=== PATIENT | female | born 1935 | race Hispanic/Latino ===

== ENCOUNTER 2017-03-29 04:56 | Inpatient (IN) | payer MEDICARE ==
[2017-03-29] MEDS ORDERED: Morphine 2 mg/ml ISec SC ONE (06:00)
--- NOTE | 2017-03-29 06:30 | ED PDOC ---
Arrival/HPI - General Time Seen by Provider: 03/29/17 06:24 - History of Present Illness Narrative History of Present Illness (Text): 03/29/17 06:27 81 F with PMHx of Breast CA biba with 2 weeks hx of progressive non-productive cough and sob. Patient's son states that she has never had an episode like this in the past. Patient presented on CPAP. She denies any history of COPD, Asthma, CHF, or moking. Denies f/ch, URI symptoms besides cough. Pt denies calf tenderness. No further complaints. (Kieran Du) Past Medical History - Provider Review Nursing Documentation Reviewed: Yes Family/Social History - Physician Review Nursing Documentation Reviewed: Yes Family/Social History: No Known Family HX Allergies/Home Meds Allergies/Adverse Reactions: Allergies pcn Allergy (Uncoded 03/29/17 06:26) RASH Home Medications: Home Meds Medication Instructions Recorded Confirmed Glyburide [Micronase] 10 mg PO DAILY 03/29/17 03/29/17 Lisinopril [Zestril] 10 mg PO DAILY 03/29/17 03/29/17 MetFORMIN [glucOPHAGE] 1,000 mg PO BID 03/29/17 03/29/17 Simvastatin [Zocor] 20 mg PO HS 03/29/17 03/29/17 Review of Systems - Physician Review All systems were reviewed & negative as marked: Yes - Review of Systems Constitutional: Normal. absent: Fatigue, Weight Change, Fevers Eyes: Normal. absent: Vision Changes, Photophobia, Eye Pain ENT: Normal. absent: Hearing Changes, Tinnitus, TMJ Pain Respiratory: SOB, Cough. absent: Sputum Cardiovascular: Normal. absent: Chest Pain, Palpitations, Edema, Calf Pain, ROCHA Gastrointestinal: Normal. absent: Abdominal Pain, Stool Changes, Constipation, Diarrhea, Nausea, Vomiting Genitourinary Female: Normal. absent: Dysuria, Frequency, Hematuria Musculoskeletal: Normal. absent: Arthralgias, Back Pain, Neck Pain Skin: Normal. absent: Rash, Pruritis, Skin Lesions Neurological: Normal. absent: Headache, Dizziness, Focal Weakness Endocrine: Normal. absent: Diaphoresis, Polyuria, Polydipsia Hemo/Lymphatic: Normal. absent: Adenopathy, Easy Bleeding, Easy Bruising Psychiatric: Normal. absent: Anxiety, Depression, Suicidal Ideation Physical Exam Vital Signs Reviewed: Yes Temperature: Afebrile Blood Pressure: Hypertensive Pulse: Tachycardic Respiratory Rate: Tachypneic Appearance: Positive for: Well-Appearing, Non-Toxic, Comfortable Pain Distress: None Mental Status: Positive for: Alert and Oriented X 3 - Systems Exam Head: Present: Atraumatic, Normocephalic. No: Tenderness, Contusion Pupils: Present: PERRL. No: Sluggish, Non-Reactive, Pinpoint Extroacular Muscles: Present: EOMI. No: Gaze Palsy, Entrapment Conjunctiva: Present: Normal. No: Injected, Icteric Ears: Present: Normal, NORMAL TM, Normal Canal. No: Erythema, TM Bulging Mouth: Present: Moist Mucous Membranes, Normal Lips. No: Dry, Drooling, Trismus Pharnyx: Present: Normal. No: ERYTHEMA, EXUDATE, TONSILS ENLARGED Nose (External): Present: Atraumatic. No: Abrasion, Contusion, Laceration Nose (Internal): Present: Normal Inspection, No Active Bleeding. No: Moist, Engorged, Edematous, Boggy Neck: Present: Normal Range of Motion. No: Meningeal Signs, MIDLINE TENDERNESS , Paraspinal Tenderness, JVD Respiratory/Chest: Present: Respiratory Distress, Accessory Muscle Use, Rales ( bibasilar rales, more pronounced on the right) Cardiovascular: Present: Normal S1, S2, Tachycardic. No: Regular Rate and Rhythm (regular rhythm, tachycardic), Murmurs Abdomen: Present: Normal Bowel Sounds. No: Tenderness, Distention, Peritoneal Signs Back: Present: Normal Inspection. No: CVA Tenderness, Midline Tenderness, Paraspinal Tenderness Upper Extremity: Present: Normal Inspection, Normal ROM, NORMAL PULSES. No: Cyanosis, Edema, Tenderness Lower Extremity: Present: Normal Inspection, CALF TENDERNESS, NORMAL PULSES, Normal ROM. No: Edema, Cyanosis Neurological: Present: GCS=15, CN II-XII Intact, Speech Normal, Motor Func Grossly Intact, Normal Sensory Function, Normal Cerebellar Funct Skin: Present: Warm, Dry, Normal Color. No: Rashes, Diaphoretic, Erythematous, Induration, Hot, Cold Psychiatric: Present: Alert, Oriented x 3, Normal Insight, Normal Concentration , Normal Affect, Normal Mood. No: Anxious, Agitated, Depressed Mood, Suicidal Ideation, Homicidal Ideation Vital Signs Temp Pulse Resp BP Pulse Ox 03/29/17 09:19 82 18 137/68 98 03/29/17 08:08 98.2 F 88 20 129/73 98 03/29/17 07:30 78 20 131/77 97 03/29/17 06:28 95 H 24 133/69 97 Medical Decision Making ED Course and Treatment: Assessed 03/29/17 05:50 Impression: 81 F with SOB and non-productive cough Plan: - Duonebs - CXR, Tropes, EKG - CMP, CBC, BNP, Blood Cx - UA, U Cx - Reassess Reassessed 03/29/17 06:10 - Pt feels much better after duonebs - CXR shows pulmonary venous congestion, cardiomegaly - EKG shows sinus tachycardia with occasional PVC's Reassessed 03/29/17 06:25 - WBC elevated, BNP elevated - 1 dose of Zosyn - Spoke to Dr. Christian, who admits her to his service - Per Dr. Christian, ordered CTA (Kieran Du) Patient Seen With Resident: In agreement with resident note which contains more details about the patient. Patient was seen and evaluated with resident. Came up with plan and treatment together. (Kana Curry) - Lab Interpretations Lab Results: 03/29/17 05:50 03/29/17 05:15 Lab Results 03/29/17 05:50: pO2 62 H, VBG pH 7.21 L, VBG pCO2 48.0, VBG HCO3 19.2 L, VBG Total CO2 20.7 L, VBG O2 Sat (Calc) 91.2 H, VBG Base Excess -8.8 L, VBG Potassium 3.9, Glucose 268 H, Lactate 2.9 H, FiO2 21.0, Sodium 140.0, Chloride 109.0 H, Venous Blood Potassium 3.9 03/29/17 05:50: WBC 15.5 H, RBC 4.86, Hgb 14.5, Hct 43.6, MCV 89.7, MCH 29.8, MCHC 33.3, RDW 13.9, Plt Count 263, MPV 10.9, Gran % 53.2, Lymph % (Auto) 38.2 H , [place] % (Auto) 5.4, Eos % (Auto) 2.9, Baso % (Auto) 0.3, Gran # 8.28 H, Lymph # 5.9 H, [place] # 0.8 H, Eos # 0.5, Baso # 0.04 03/29/17 05:50: PT 11.0, INR 1.02, APTT 26.8 03/29/17 05:15: Free T4 0.91, Thyroxine (T4) 7.2, TSH 3rd Generation 4.16 03/29/17 05:15: Sodium 143, Potassium 3.8, Chloride 108 H, Carbon Dioxide 19 L, Anion Gap 20, BUN 22 H, Creatinine 1.0, Est GFR ( Amer) > 60, Est GFR ( Non-Af Amer) 53, Random Glucose 237 H, Calcium 9.2, Total Bilirubin 1.0, AST 76 H, ALT 45, Alkaline Phosphatase 70, Total Creatine Kinase 158, Troponin I 0.03, Total Protein 7.7, Albumin 4.6, Globulin 3.1, Albumin/Globulin Ratio 1.5, Triglycerides 190 H, Cholesterol 168, LDL Cholesterol Direct 117, HDL Cholesterol 32 - Medication Orders Current Medication Orders: Aspirin (Ecotrin) 81 mg PO DAILY [facility] Last Admin: 03/29/17 13:55 Dose: 81 mg Atorvastatin Calcium (Lipitor) 40 mg PO DAILY [facility] Last Admin: 03/29/17 10:06 Dose: 40 mg Benzonatate (Tessalon Perles) 200 mg PO TID [facility] Last Admin: 03/29/17 15:16 Dose: 200 mg Clopidogrel Bisulfate (Plavix) 75 mg PO DAILY [facility] Enoxaparin Sodium (Lovenox) 60 mg SC BID [facility] PRN Reason: Protocol Furosemide (Lasix) 40 mg IVP Q12H [facility] Last Admin: 03/29/17 07:00 Dose: Doxycycline Hyclate 100 mg/ (Sodium Chloride) 100 mls @ 100 mls/hr IVPB Q12 [facility] PRN Reason: Protocol Last Admin: 03/29/17 10:08 Dose: 100 mls/hr Aztreonam (Azactam 2 Gm) 100 mls @ 100 mls/hr IVPB Q8 [facility] PRN Reason: Protocol Stop: 04/02/17 22:59 Last Admin: 03/29/17 15:44 Dose: 100 mls/hr eMAR Start Stop Document 03/29/17 15:44 KMS (Rec: 03/29/17 15:44 KMS [id number]) Intravenous Solution Start Date 03/29/17 Start Time 15:45 End Date 03/29/17 End time 16:45 Total Infusion Time 60 Insulin Human Regular (Humulin R Low) 0 units SC ACHS [facility] PRN Reason: Protocol Last Admin: 03/29/17 13:55 Dose: 2 units MAR Blood Glucose Document 03/29/17 13:55 KMS (Rec: 03/29/17 13:56 [place] [id number]) Blood Glucose Finger Stick Blood Glucose (70-120) 221 Subcutaneous Administrations Document 03/29/17 13:55 KMS (Rec: 03/29/17 13:56 [place] [id number]) Injection Site MAR Injection Site Left Arm Charges for Administration # of Subcutaneous Administrations 1 Levalbuterol HCl (Xopenex) 0.63 mg IH [id number] [facility] Last Admin: 03/29/17 15:14 Dose: 0.63 mg Pantoprazole Sodium (Protonix Ec Tab) 20 mg PO 0600,1600 [facility] Last Admin: 03/29/17 09:02 Dose: 20 mg Discontinued Medications Albuterol/Ipratropium (Duoneb 3 Mg/0.5 Mg (3 Ml) Ud) 3 ml IH ONCE ONE Stop: 03/29/17 08:31 Last Admin: 03/29/17 08:55 Dose: 3 ml Atorvastatin Calcium (Lipitor) 40 mg PO STAT STA Stop: 03/29/17 07:59 Clopidogrel Bisulfate (Plavix) 300 mg PO STAT STA Stop: 03/29/17 13:31 Last Admin: 03/29/17 13:43 Dose: 300 mg Enoxaparin Sodium (Lovenox) 40 mg SC DAILY [facility] PRN Reason: Protocol Last Admin: 03/29/17 10:05 Dose: 40 mg Subcutaneous Administrations Document 03/29/17 10:05 KMS (Rec: 03/29/17 10:05 [id number]) Injection Site MAR Injection Site Right Abdomen Charges for Administration # of Subcutaneous Administrations 1 Furosemide (Lasix) 40 mg IVP ONCE ONE Stop: 03/29/17 08:31 Last Admin: 03/29/17 09:00 Dose: Iodixanol (Visipaque 320 Mg/Ml 100 Ml) Confirm Administered Dose 100 ml IV .STK- MED ONE Stop: 03/29/17 06:32 Morphine Sulfate (Morphine) 2 mg SC ONCE ONE Stop: 03/29/17 06:01 Last Admin: 03/29/17 08:48 Dose: Potassium Chloride (Potassium Chloride Oral Soln) 20 meq PO STAT STA Stop: 03/29/17 13:25 Last Admin: 03/29/17 13:43 Dose: 20 meq Disposition/Present on Arrival - Present on Arrival Any Indicators Present on Arrival: No History of DVT/PE: No History of Uncontrolled Diabetes: No Urinary Catheter: No History of Decub. Ulcer: No - Disposition Have Diagnosis and Disposition been Completed?: Yes Disposition Time: 06:25 Patient Plan: Admission - Disposition Diagnosis: Shortness of breath Disposition: HOSPITALIZED Patient Problems: Current Active Problems Problem Status Onset Shortness of breath Acute Condition: IMPROVED
[2017-03-29] MEDS ORDERED: Iodixanol 320 MG/ML 100 ML BOTTLE IV ONE (06:31)
[2017-03-29 07:14] LABS: TROPONIN I 0.03 ng/mL
[2017-03-29 07:17] LABS: ALB/GLOB RATIO 1.5 (1.1-1.8); ALKALINE PHOSPHATASE 70 U/L (38-126); ALT/SGPT 45 U/L (7-56); AST/SGOT 76 U/L (14-36); BLOOD UREA NITROGEN 22 mg/dL (7-21); CALCIUM 9.2 mg/dL (8.4-10.5); CARBON DIOXIDE 19 mmol/L (21-33); CHLORIDE 108 mmol/L (98-107); GFR AFRICAN-AMERICAN > 60; GLUCOSE,RANDOM 237 mg/dL (70-110); POTASSIUM 3.8 mmol/L (3.6-5.0); SODIUM 143 mmol/L (132-148); TOTAL PROTEIN 7.7 g/dL (5.8-8.3)
[2017-03-29 07:22] LABS: VENOUS BLOOD GAS BASE EXCESS -8.8 mmol/L (0.0-2.0); VENOUS BLOOD PH 7.21 (7.32-7.43)
[2017-03-29 07:42] LABS: CHOLESTEROL 168 mg/dL (130-200)
[2017-03-29 07:43] LABS: HEMATOCRIT 43.6 % (36.0-48.0); MEAN CELL VOLUME 89.7 fl (80.0-105.0); WHITE BLOOD COUNT 15.5 10^3/ul (4.5-11.0)
[2017-03-29 07:44] LABS: BASO # 0.04 K/mm3 (0.0-2.0); BASO % 0.3 % (0.0-3.0); EOS # 0.5 (0.0-0.7); EOS % 2.9 % (1.5-5.0); GRAN # 8.28 (1.4-6.5); GRAN % 53.2 % (50.0-68.0); LYMPH # 5.9 (1.2-3.4); LYMPH % 38.2 % (22.0-35.0); MEAN CORPUSCULAR HEMOGLOBIN 29.8 pg (25.0-35.0); MEAN CORPUSCULAR HGB CONC 33.3 g/dl (31.0-37.0); MEAN PLATELET VOLUME 10.9 fl (7.0-11.0); MONO # 0.8 (0.1-0.6); MONO % 5.4 % (1.0-6.0); RED CELL DISTRIBUTION WIDTH 13.9 % (11.5-14.5)
[2017-03-29 07:56] LABS: INR 1.02 (0.93-1.08); PARTIAL THROMBOPLASTIN TIME 26.8 Seconds (23.7-30.8)
[2017-03-29 08:02] LABS: FREE T4 0.91 ng/dL (0.78-2.19); T4 7.2 ug/dL (5.5-11.0)
[2017-03-29] MEDS: Levalbuterol 0.63 MG/3 ML Inhal Soln UD IH SCH ×3 (08:10→19:22)
[2017-03-29 08:15] LABS: THYROID STIMULATING HORMONE 4.16 mIU/mL (0.46-4.68)
[2017-03-29] MEDS ORDERED: Albuterol-Ipratrop 3 mg / 0.5 (3 ml) UD IH ONE (08:30)
[2017-03-29] MEDS: Pantoprazole 20 mg EC Tab PO SCH ×2 (09:02→17:09)
[2017-03-29] MEDS: Aztreonam 2 Gm in NS 100mL 100 ML IVPB SCH ×3 (09:11→22:59)
[2017-03-29] MEDS ORDERED: Enoxaparin 40 mg Syringe SC SCH (10:00)
--- NOTE | 2017-03-29 10:07 | CT ---
PROCEDURE: CTA chest dated 02/26/2017. HISTORY: Rule out PE COMPARISON: None available. TECHNIQUE: Axial computed tomography images were obtained of the chest in the pulmonary arterial phase of enhancement. Coronal and sagittal reformatted images were created and reviewed. Intravenous contrast dose: 100 cc Visipaque contrast material Radiation dose: Total exam DLP = 353. 98 mGy-cm. This CT exam was performed using one or more of the following dose reduction techniques: Automated exposure control, adjustment of the mA and/or kV according to patient size, and/or use of iterative reconstruction technique. FINDINGS: PULMONARY ARTERIES: Visualized pulmonary trunk, right and left main, lobar, segmental and proximal subsegmental branches of the pulmonary arteries are well opacified with no definitive filling defects seen suggest acute pulmonary embolus. The pulmonary trunk measures approximately 3.6 cm in greatest dimension; rule out underlying pulmonary arterial hypertension. AORTA: Ascending thoracic aorta measures approximately 2.8 cm and descending thoracic aorta measures approximately 2.15 cm. LUNGS: Moderate-sized bilateral effusions right larger than left. There is also mild bibasilar atelectasis. Findings consistent with mild pulmonary edema/CHF. In addition, there appears to be at areas of chronic atelectasis and or scarring changes in both lower lung summers including the middle lobe and lingular regions. PLEURAL SPACES: As above. No apparent pneumothorax HEART: Heart is enlarged. There is left ventricular hypertrophy. No significant pericardial effusion. LYMPH NODES: Few small nonspecific mediastinal lymph nodes. No significant hilar adenopathy. BONES, CHEST WALL: Mild multilevel degenerative spondylosis of the thoracic spine. No acute compression fractures. Probable hemangiomas within T7 and T12 segments. OTHER FINDINGS: Unremarkable. IMPRESSION: No evidence of acute central pulmonary embolus. Mildly dilated pulmonary trunk. Rule out underlying pulmonary arterial hypertension. Above bilateral effusions right larger than left. Bibasilar atelectasis with chronic scarring changes. Findings consistent with mild pulmonary edema/CHF
[2017-03-29 11:05] LABS: VENOUS BLOOD PH 7.28 (7.32-7.43)
[2017-03-29 11:23] LABS: TROPONIN I 0.09 ng/mL
--- NOTE | 2017-03-29 11:52 | HP ---
HISTORY OF PRESENT ILLNESS: The patient is an 81-year-old female who has been visiting from [place]. The patient was brought to the [facility] Emergency Room in the police liaison hours of 03/29/2017. The patient presented to the emergency room, according to the ER physician evaluation, the patient was brought in by the ambulance, complains of 2-week history of increasing shortness of breath and cough. According to the patient's son, the patient has history of pneumonia. The patient has been having worsening symptoms for the last week or 2. REVIEW OF SYSTEMS: The patient's 13 system review was positive for cough and increasing shortness of breath. CODE STATUS: Full code. LIVING WILL ADVANCE DIRECTIVE: None. ALLERGIES: PENICILLIN. HEIGHT: 5 feet 1 inch. WEIGHT: 140 pounds. BMI: 26. PAST MEDICAL HISTORY: Significant for breast carcinoma, history of questionable pneumonia, history of PENICILLIN ALLERGIES. MEDICATIONS: The patient's medications are none known at this time. At present, [employer] system is not fully up, so limited information is available. The patient's family is unable to provide any medications. The patient was seen in stretcher #8 in the emergency room. PHYSICAL EXAMINATION: VITAL SIGNS: T-max afebrile, heart rate 95, blood pressure 133/90, respiration 24, O2 sat 97% on 2 L oxygen. GENERAL: The patient was seen by the ER physician and the medical technologist blood bank in the ER. The patient's 13 system review was positive for shortness of breath and cough. The patient is a short-statured lady. HEENT: The patient's head examination normocephalic, atraumatic. HEENT examination shows pinkish pale conjunctivae. Anicteric sclerae. No oropharyngeal lesions noted. NECK: Short and supple. CHEST: Kyphosis. LUNGS: Examination shows bilateral bibasilar rales and rhonchi bilaterally. CARDIOVASCULAR: Shows S1, S2, tachycardic rhythm. ABDOMEN: Soft. Positive bowel sounds. No guarding. No rigidity. No rebound tenderness noted. GENITALIA: Female. EXTREMITIES: Positive swelling of the lower extremity. NEUROLOGIC: The patient is alert, awake, responsive. Cranial nerves II through XII grossly intact. Gait examination could not be tested. The patient is alert, awake, oriented x3. PSYCH: No auditory or visual hallucination noted. No anxiety or suicidal ideation noted. SKIN: Warm and dry. The patient was seen and evaluated in the ER by the ER physician and the resident. The patient was given an epidural bronchodilators. Chest x-ray, cardiac enzymes, EKG, BNP were done. Chest x-ray preliminary report, increased vascular marking and pulmonary vascular congestion, cardiomegaly noted. EKG shows sinus tachycardia with PACs, PVCs. The patient was treated with a dose of Zosyn. The patient was given Lasix 40 and DuoNeb nebulizer.. The patient's diagnostic data is still pending. Labs are still pending. We are unable to access this secondary to [employer] issues. IMPRESSION AND PLAN: 1. Shortness of breath, etiology undetermined. 2. Possible congestive heart failure, either systolic versus diastolic, unclear at this time. 3. Leukocytosis, etiology undetermined. 4. Cardiomegaly. 5. Sinus tachycardia. 6. Questionable systemic inflammatory response syndrome. 7. Questionable community-acquired pneumonia. 8. Congestive heart failure. 9. History of breast carcinoma. PLAN: At this time, we are awaiting official lab results, which will be reviewed. The patient has been admitted to telemetry by the ER attending. The patient has been ordered serial BNP, serial labs, serial troponins, serial CPKs, thyroid panel, lipid panel have been ordered. The patient is started on Lasix 40 IV q.12, Lovenox 40 subcu daily, Protonix 40 mg daily, Xopenex nebulizer 0.63 mg every 6 hours. The patient has also been on put on oxygen 2 L continuous. Repeat EKG ordered. Echo with Doppler ordered. Cardiology consultation and Infectious Disease consultation have been ordered. The patient has already been given a dose of antibiotics. Blood cultures will be ordered. Sputum cultures will be ordered. The patient will be started on broad-spectrum antibiotics with bronchodilators, an expectorant. The patient at present is in the emergency room. The patient's further management will be dependent upon the patient's clinical condition, hemodynamic status, and as per the patient response to therapeutic intervention as per the patient's diagnostic test results, and as per recommendation by Cardiology and Infectious Disease. The patient's diagnostic data has been ordered. Steven Christian MD
[2017-03-29 12:00] VITALS: BMI 26.4
--- NOTE | 2017-03-29 12:26 | RAD ---
HISTORY: CHEST PORTABLE COMPARISON: The study was read in conjunction with subsequent CTA chest 03/29/2017 at 8:16 a.m. FINDINGS: LUNGS: Mild pulmonary vascular congestive changes with bilateral lower lobe alveolar-type infiltrates. Bilateral effusions right greater than left with bibasilar atelectasis. PLEURA: No significant pleural effusion identified, no pneumothorax apparent. CARDIOVASCULAR: Cardiomegaly. OSSEOUS STRUCTURES: No significant abnormalities. VISUALIZED UPPER ABDOMEN: Normal. OTHER FINDINGS: Re- demonstrated are metallic clips right axillary soft tissues and posterior right breast. . Clinic correlation with surgical history recommended. IMPRESSION: Pulmonary vascular congestion with bilateral effusions and bibasilar atelectasis
[2017-03-29] MEDS ORDERED: Potassium Chloride 20 mEq/15 ml LIQ UD PO STA (13:24)
[2017-03-29] MEDS: Insulin Reg-LOW-Coverage SC SCH ×3 (13:55→23:03)
--- NOTE | 2017-03-29 14:27 | CP.PCM.CON ---
History of Present Illness - History of Present Illness History of Present Illness: 81 year old female with PMH of breast cancer came in to [facility] because of sudden onset respiratory distress last night with some chest tightness. The patient denies fever or chills, no nausea or vomiting, no abdominal pain, no cough or sputum production, no headache or dizziness, no diarrhea, no dysuria. She denies specific sick contacts, no animal contacts. She is visiting her son here in [place] and lives in [place]. Infectious Diseases consult is requested to further evaluate and manage. Review of Systems - Review of Systems All systems: reviewed and no additional remarkable complaints except (as per HPI ) Meds Allergies/Adverse Reactions: Allergies Allergy/AdvReac Type Severity Reaction Status Date / Time pcn Allergy RASH Uncoded 03/29/17 06:26 - Medications Medications: Current Medications Atorvastatin Calcium (Lipitor) 40 mg PO DAILY [facility] Benzonatate (Tessalon Perles) 200 mg PO TID [facility] Enoxaparin Sodium (Lovenox) 40 mg SC DAILY [facility] PRN Reason: Protocol Furosemide (Lasix) 40 mg IVP Q12H [facility] Doxycycline Hyclate 100 mg/ (Sodium Chloride) 100 mls @ 100 mls/hr IVPB Q12 [facility] PRN Reason: Protocol Aztreonam (Azactam 2 Gm) 100 mls @ 100 mls/hr IVPB Q8 [facility] PRN Reason: Protocol Stop: 04/02/17 22:59 Levalbuterol HCl (Xopenex) 0.63 mg IH [id number] [facility] Pantoprazole Sodium (Protonix Ec Tab) 20 mg PO 0600,1600 [facility] Physical Exam - Constitutional Appears: Non-toxic, No Acute Distress - Head Exam Head Exam: NORMAL INSPECTION - ENT Exam ENT Exam: Mucous Membranes Moist - Neck Exam Neck exam: Negative for: Lymphadenopathy, Meningismus - Respiratory Exam Respiratory Exam: Decreased Breath Sounds - Cardiovascular Exam Cardiovascular Exam: +S1, +S2 - GI/Abdominal Exam GI & Abdominal Exam: Soft. absent: Tenderness Results - Vital Signs Recent Vital Signs: Last Vital Signs Temp 98.2 F 03/29/17 08:08 Pulse 88 03/29/17 08:08 Resp 20 03/29/17 08:08 BP 129/73 03/29/17 08:08 Pulse Ox 98 03/29/17 08:08 - Labs Result Diagrams: 03/29/17 05:50 03/29/17 05:15 Labs: Laboratory Results - last 24 hr 03/29/17 07:36 Lactic Acid 2.8 H Assessment & Plan - Assessment and Plan (Free Text) Plan: Assessment Systemic Inflammatory Response Syndrome, consider due to acute on chronic CHF, R /O pneumonia breast cancer acute renal failure Plan Patient has been started on Doxycycline and Azactam; follow up PCT, blood cx; reviewed CT chest will monitor clinically
--- NOTE | 2017-03-29 14:55 | CP.PCM.HP ---
History of Present Illness - History of Present Illness History of Present Illness: H&P. Dr. Christian 81yo F with PMHx of breast CA, ?Hx of PNA in the past, here for evaluation of worsening SOB and chest pain. Patient lives in [place] and visits [place] often (Son lives in [place]). She brought into the ER by ambulance. She states that currently, her chest pain has resolved however, still c/o mild SOB. She denies any recent illness. She denies N/V/D. No abd pain. No Headaches. No urinary changes. No F/C. Patient states that her SOB has gradually gotten worse over the past two weeks. PMD: in [place]. PMHx: Breast CA. ?hx of Pneumonia in the past PSHx: Denies Family Hx: denies Social Hx: Denies tobacco, Denies ETOH, Denies illicit drugs. Patient lives in [place] visits her son in [place] often Allergy: Penicillin Present on Admission - Present on Admission Any Indicators Present on Admission: No Review of Systems - Review of Systems All systems: reviewed and no additional remarkable complaints except - Constitutional Constitutional: absent: Chills, Fever - EENT Nose/Mouth/Throat: absent: Nasal Congestion - Cardiovascular Cardiovascular: Chest Pain, Dyspnea - Respiratory Respiratory: Cough (non productive), Dyspnea. absent: Hemoptysis - Gastrointestinal Gastrointestinal: absent: Abdominal Pain, Diarrhea, Nausea, Vomiting - Genitourinary Genitourinary: absent: Dysuria - Neurological Neurological: absent: Headaches - Psychiatric Psychiatric: absent: Anxiety Past Patient History - Infectious Disease Hx of Infectious Diseases: None - Past Medical History & Family History Past Medical History?: Yes Past Family History: Reviewed and not pertinent - Past Social History Smoking Status: Never Smoked Alcohol: None Drugs: Denies - CARDIAC Hx Congestive Heart Failure: Yes (present: 03/29/17) Hx Hypercholesterolemia: Yes Hx Hypertension: Yes - HEENT Hx Cataracts: Yes - ENDOCRINE/METABOLIC Hx Diabetes Mellitus Type 2: Yes - HEMATOLOGICAL/ONCOLOGICAL Hx Cancer: Yes (Breast: right lumpectomy & 2 lymph nodes) Other/Comment: skin cancer of right and third digit: removed - INTEGUMENTARY Hx Dermatological Problems: Yes Other/Comment: right hand, 3 digit cancer removed - MUSCULOSKELETAL/RHEUMATOLOGICAL Hx Falls: Yes Hx Fractures: Yes (right heel fracture; 3 years ago) - GASTROINTESTINAL Other/Comment: colonoscopy in the past - PSYCHIATRIC Hx Anxiety: Yes Hx Substance Use: No Other/Comment: stress latel with regards to family member moving - SURGICAL HISTORY Hx Surgeries: Yes Hx Cholecystectomy: Yes Other/Comment: right hand, third digit : cancer - removed Meds Allergies/Adverse Reactions: Allergies Allergy/AdvReac Type Severity Reaction Status Date / Time pcn Allergy RASH Uncoded 03/29/17 06:26 Physical Exam - Constitutional Appears: Well, No Acute Distress - Head Exam Head Exam: ATRAUMATIC, NORMAL INSPECTION, NORMOCEPHALIC - Eye Exam Eye Exam: EOMI - ENT Exam ENT Exam: Mucous Membranes Moist - Respiratory Exam Respiratory Exam: Decreased Breath Sounds (mildly decreased breath sounds bilaterally. Bilateral rales and rhonchi worse at lung bases. ), Rales, Rhonchi - GI/Abdominal Exam GI & Abdominal Exam: Soft. absent: Guarding, Rigid, Tenderness - Extremities Exam Extremities exam: Positive for: normal inspection - Neurological Exam Neurological exam: Alert, Oriented x3 - Psychiatric Exam Psychiatric exam: Normal Affect, Normal Mood - Skin Skin Exam: Dry, Intact, Normal Color, Warm Results - Vital Signs Recent Vital Signs: Last Vital Signs Temp 98.7 F 03/29/17 13:48 Pulse 99 H 03/29/17 13:48 Resp 17 03/29/17 13:48 BP 144/67 03/29/17 13:48 Pulse Ox 98 03/29/17 09:19 - Labs Result Diagrams: 03/29/17 05:50 03/29/17 05:15 Labs: Laboratory Results - last 24 hr 03/29/17 03/29/17 03/29/17 07:30 07:36 07:36 pO2 VBG pH VBG pCO2 VBG HCO3 VBG Total CO2 VBG O2 Sat (Calc) VBG Base Excess VBG Potassium Sodium Chloride Glucose Lactate FiO2 POC Glucose (mg/dL) Hemoglobin A1c 6.4 Lactic Acid Total Creatine Kinase Troponin I 25-OH Vitamin D Total 47.3 Procalcitonin 0.09 L Venous Blood Potassium 03/29/17 03/29/17 03/29/17 07:36 10:45 10:45 pO2 30 VBG pH 7.28 L VBG pCO2 52.0 VBG HCO3 24.4 VBG Total CO2 26.0 VBG O2 Sat (Calc) 62.1 VBG Base Excess -3.0 L VBG Potassium 3.8 Sodium 139.0 Chloride 105.0 Glucose 138 H Lactate 3.2 H FiO2 21.0 POC Glucose (mg/dL) Hemoglobin A1c Lactic Acid 2.8 H Total Creatine Kinase 163 Troponin I 0.09 D 25-OH Vitamin D Total Procalcitonin Venous Blood Potassium 3.8 03/29/17 12:26 pO2 VBG pH VBG pCO2 VBG HCO3 VBG Total CO2 VBG O2 Sat (Calc) VBG Base Excess VBG Potassium Sodium Chloride Glucose Lactate FiO2 POC Glucose (mg/dL) 221 H Hemoglobin A1c Lactic Acid Total Creatine Kinase Troponin I 25-OH Vitamin D Total Procalcitonin Venous Blood Potassium Assessment & Plan - Assessment and Plan (Free Text) Assessment: 81yo F with PMHx including ?pneumonia, and Breast CA here for evaluation of shortness of breath, cough and chest pain. 1. Shortness of breath consider CHF as etiology CXR - pulmonary vascular congestion ?Pneumonia Cardiology consulted, appreciate recs f/u ECHO Troponin x2 indeterminate. Repeat Troponin repeat BNP Procal negative CTA reviewed. No PE. Bilateral pleural effusions, right greater than left. Possible Pulm HTN. Consider CHF exacerbation ID consulted, appreciate recs on Aztreonam and Doxycycline f/u Blood cxs Xopenex breathing treatments Supplemental O2 f/u repeat EKG f/u LE doppler on Lasix 2. Atypical Chest pain Cardiology consulted troponin x2 indeterminate f/u serial troponin f/u ECHO f/u Thyroid panel Lovenox 60mg SC BID ASA Plavix 3. Elevated Triglycerides Chol 168 LDL 117 Lipitor started 4. PPx on theraputic lovenox Protonix Further recs as per Dr. Gino Amato PGY1
[2017-03-29] MEDS ORDERED: Enoxaparin 60 mg Syringe SC SCH (18:00)
--- NOTE | 2017-03-29 22:04 | CARD ---
APPROVED REPORT EXAM: Two-dimensional and M-mode echocardiogram with Doppler and color Doppler. INDICATION Congestive Heart Failure 2D DIMENSIONS Left Atrium (2D)4.5 (1.6-4.0cm)IVSd1.2 (0.7-1.1cm) LVDd5.2 (3.9-5.9cm)PWd1.5 (0.7-1.1cm) LVDs4.5 (2.5-4.0cm)FS (%) 13.0 % LVEF (%)27.8 (>50%) M-Mode DIMENSIONS Aortic Root2.50 (2.2-3.7cm)Aortic Cusp Exc.1.40 (1.5-2.0cm) Aortic Valve AoV Peak Ykppupds840.0cm/Bakari Peak GR.7mmHg Mitral Valve MV E Nsrdmluk362.0cm/sMV A Ktpnhqbh093.0cm/sE/A ratio0.9 TDI Lateral E' Peak V6.63cm/sMedial E' Peak V4.29cm/sE/Lateral E'18.4 E/Medial E'28.4 Pulmonary Valve PV Peak Fwnzzudl48.2cm/sPV Peak Grad.2mmHg Tricuspid Valve TR Peak [id number]/sRAP [id number] Peak Gr.41mmHg [id number] LEFT VENTRICLE The left ventricle is normal size. There is borderline concentric left ventricular hypertrophy. The systolic function is severely impaired. There is global hypokinesis of the left ventricle. Transmitral Doppler flow pattern is Grade I-abnormal relaxation pattern. RIGHT VENTRICLE The right ventricle is normal size. There is normal right ventricular wall thickness. The right ventricular systolic function is normal. ATRIA The left atrium is moderately dilated. The right atrium is mildly dilated. AORTIC VALVE The aortic valve is mildly thickened. No aortic regurgitation is present. MITRAL VALVE The mitral valve is moderately thickened. Mitral regurgitation is moderate to severe. TRICUSPID VALVE There is moderate pulmonary hypertension. PULMONIC VALVE There is mild to moderate pulmonic valvular regurgitation. GREAT VESSELS The aortic root is normal in size. PERICARDIAL EFFUSION There is no pericardial effusion. <Conclusion> The left ventricle is normal size. There is borderline concentric left ventricular hypertrophy. The systolic function is severely impaired. There is global hypokinesis of the left ventricle. Transmitral Doppler flow pattern is Grade I-abnormal relaxation pattern. Mitral regurgitation is moderate to severe. There is moderate pulmonary hypertension. There is mild to moderate pulmonic valvular regurgitation.
--- NOTE | 2017-03-29 22:49 | CARD ---
APPROVED REPORT EKG Measurement Heart [id number] CT [id number] <Conclusion> Normal sinus rhythm Left axis deviation Incomplete left bundle branch block Nonspecific T wave abnormality Prolonged QT Abnormal ECG
--- NOTE | 2017-03-29 22:55 | CARD ---
APPROVED REPORT EKG Measurement Heart [id number] IN [id number] <Conclusion> Sinus rhythm with occasional premature ventricular complexes Left axis deviation Incomplete left bundle branch block Nonspecific ST and T wave abnormality Abnormal ECG
[2017-03-30] MEDS: Levalbuterol 0.63 MG/3 ML Inhal Soln UD IH SCH ×2 (01:36→08:07)
[2017-03-30] MEDS: Aztreonam 2 Gm in NS 100mL 100 ML IVPB SCH (05:31)
[2017-03-30 06:04] LABS: BASO # 0.01 K/mm3 (0.0-2.0); BASO % 0.1 % (0.0-3.0); EOS # 0.1 (0.0-0.7); EOS % 0.9 % (1.5-5.0); GRAN # 5.74 (1.4-6.5); HEMATOCRIT 36.6 % (36.0-48.0); LYMPH # 1.5 (1.2-3.4); LYMPH % 18.8 % (22.0-35.0); MEAN CELL VOLUME 88.4 fl (80.0-105.0); MEAN CORPUSCULAR HEMOGLOBIN 29.2 pg (25.0-35.0); MEAN CORPUSCULAR HGB CONC 33.1 g/dl (31.0-37.0); MEAN PLATELET VOLUME 10.7 fl (7.0-11.0); MONO # 0.7 (0.1-0.6); MONO % 8.2 % (1.0-6.0); RED CELL DISTRIBUTION WIDTH 13.8 % (11.5-14.5)
[2017-03-30 06:15] LABS: ALB/GLOB RATIO 1.5 (1.1-1.8); ALKALINE PHOSPHATASE 53 U/L (38-126); ALT/SGPT 40 U/L (7-56); AST/SGOT 82 U/L (14-36); BILIRUBIN,DIRECT 0.4 mg/dL (0.0-0.4); BILIRUBIN,TOTAL 0.9 mg/dL (0.2-1.3); BLOOD UREA NITROGEN 31 mg/dL (7-21); CALCIUM 9.1 mg/dL (8.4-10.5); CARBON DIOXIDE 24 mmol/L (21-33); CHLORIDE 104 mmol/L (98-107); GFR AFRICAN-AMERICAN > 60; GLUCOSE,RANDOM 157 mg/dL (70-110); MAGNESIUM 1.3 mg/dL (1.7-2.2); POTASSIUM 3.8 mmol/L (3.6-5.0); SODIUM 144 mmol/L (132-148); TOTAL PROTEIN 6.6 g/dL (5.8-8.3)
[2017-03-30 06:26] LABS: TROPONIN I 0.07 ng/mL
[2017-03-30] MEDS: Pantoprazole 20 mg EC Tab PO SCH ×2 (06:44→17:15)
[2017-03-30] MEDS: Insulin Reg-LOW-Coverage SC SCH ×4 (08:00→21:30)
--- NOTE | 2017-03-30 08:18 | CON ---
CARDIOLOGY CONSULTATION DATE: 03/29/2017 HISTORY OF PRESENT ILLNESS: The patient is a 81-year-old woman who presents with sudden onset of shortness of breath. She does have feeling of dysphagia and substernal pressure, however, this is during eating. PAST MEDICAL HISTORY: The patient's past medical history is notable for hypertension, hypercholesterolemia and diabetes mellitus. No previous cardiac history is noted. The patient's past medical history is only notable for cholecystectomy 40 years ago. SOCIAL HISTORY: The patient does not smoke. REVIEW OF SYSTEM: A 14-point review of systems was reviewed in detail. She complains of a pedal edema over the past several weeks, exertional shortness of breath. No previous cardiac history. She denies COPD, has never smoked before. No previous angina. No procedures in the past. PHYSICAL EXAMINATION: VITAL SIGNS: Blood pressure varies from 129 systolic to 160 systolic, heart rate is in the 80s, normal sinus rhythm. NECK: Negative JVD. LUNGS: Without rales. HEART: Reveal S1, S2. EXTREMITIES: Trace edema. EKG shows normal sinus rhythm with left anterior hemiblock. LABORATORY DATA: Troponins was 0.09. The BUN and creatinine were normal. The pro BMP was not performed. Hemoglobin was 14.5 with a white count of 15.1. IMPRESSION 1. Acute systolic congestive heart failure. 2. Non-ST segment elevation myocardial infarction. 3. High probability for coronary artery disease. 4. Diabetes mellitus. 5. Hypertension. 6. Hypercholesterolemia. 7. Elevated white count need to rule out sepsis and pneumonia. Given these findings, we will start the patient on aspirin, Plavix therapeutic, subcutaneous Lovenox. We will obtain an echocardiogram for LV function. We will order potassium for potassium replacement. EGD in the past Leo Yarbrough MD
[2017-03-30] MEDS: Potassium Chloride 20 mEq ER Tab PO SCH ×2 (09:17→17:15)
[2017-03-30] MEDS: Magnesium Sulfate 2 GM in Sodium Chloride 0.9% 100 ML IVPB SCH ×2 (09:19→11:17)
--- NOTE | 2017-03-30 10:09 | US ---
HISTORY: Leg pain and swelling. Evaluate for DVT PHYSICIAN(S): Leo Hines MD. TECHNIQUE: Duplex sonography and color-flow Doppler with graded compression were used to evaluate the deep venous systems of both lower extremities. FINDINGS: The visualized deep venous systems of both lower extremities are sonographically normal and compressible. Normal wave forms and augmentation are seen. There is no sonographic evidence for deep venous thrombosis in the visualized segments of both lower extremities. IMPRESSION: No sonographic evidence for deep venous thrombosis in the visualized segments of both lower extremities.
--- NOTE | 2017-03-30 10:13 | CP.PCM.PN ---
Subjective - Date & Time of Evaluation Date of Evaluation: 03/30/17 Time of Evaluation: 10:13 - Subjective Subjective: Medicine Progress note. Dr. Christian Pt seen and examined at bedside. No acute events overnight. Patient states that she feels much better today. She states that her SOB is improved. No new complaints. No CM. No F/C. No CP/SOB. No N/V/D. Objective - Vital Signs/Intake and Output Vital Signs (last 24 hours): Temp Pulse Resp BP Pulse Ox 98.3 F 76 20 125/65 94 L 03/30/17 06:00 03/30/17 06:00 03/30/17 06:00 03/30/17 06:40 03/30/17 06:00 Intake and Output: 03/30/17 03/30/17 06:59 18:59 Intake Total 1200 Balance 1200 - Medications Medications: Current Medications Aspirin (Ecotrin) 81 mg PO DAILY [facility] Last Admin: 03/30/17 09:18 Dose: 81 mg Atorvastatin Calcium (Lipitor) 40 mg PO DAILY [facility] Last Admin: 03/30/17 09:17 Dose: 40 mg Benzonatate (Tessalon Perles) 200 mg PO TID [facility] Last Admin: 03/30/17 09:18 Dose: 200 mg Clopidogrel Bisulfate (Plavix) 75 mg PO DAILY [facility] Last Admin: 03/30/17 09:17 Dose: 75 mg Furosemide (Lasix) 40 mg IVP Q12H [facility] Last Admin: 03/30/17 06:40 Dose: 40 mg Doxycycline Hyclate 100 mg/ (Sodium Chloride) 100 mls @ 100 mls/hr IVPB Q12 [facility] PRN Reason: Protocol Last Admin: 03/29/17 21:45 Dose: 100 mls/hr Aztreonam (Azactam 2 Gm) 100 mls @ 100 mls/hr IVPB Q8 [facility] PRN Reason: Protocol Stop: 04/02/17 22:59 Last Admin: 03/30/17 05:31 Dose: 100 mls/hr Magnesium Sulfate 2 gm/ Sodium (Chloride) 104 mls @ 102 mls/hr IVPB Q3H [facility] Stop: 03/30/17 12:47 Last Admin: 03/30/17 09:19 Dose: 102 mls/hr Insulin Human Regular (Humulin R Low) 0 units SC ACHS [facility] PRN Reason: Protocol Last Admin: 03/30/17 08:00 Dose: 1 units Metoprolol Succinate (Toprol Xl) 25 mg PO BRK [facility] Pantoprazole Sodium (Protonix Ec Tab) 20 mg PO 0600,1600 [facility] Last Admin: 03/30/17 06:44 Dose: 20 mg Potassium Chloride (K-Dur 20 Meq Er Tab) 20 meq PO BID [facility] Last Admin: 03/30/17 09:17 Dose: 20 meq - Labs Labs: 03/30/17 05:20 03/30/17 05:20 PT 11.0 Seconds (9.9-11.8) 03/29/17 05:50 INR 1.02 (0.93-1.08) 03/29/17 05:50 APTT 26.8 Seconds (23.7-30.8) 03/29/17 05:50 - Constitutional Appears: Well, No Acute Distress - Head Exam Head Exam: ATRAUMATIC, NORMAL INSPECTION, NORMOCEPHALIC - Eye Exam Eye Exam: EOMI - ENT Exam ENT Exam: Mucous Membranes Moist - Neck Exam Neck Exam: Full ROM - Respiratory Exam Respiratory Exam: Clear to Ausculation Bilateral, NORMAL BREATHING PATTERN. absent: Wheezes, Respiratory Distress - Cardiovascular Exam Cardiovascular Exam: REGULAR RHYTHM, RRR. absent: JVD - GI/Abdominal Exam GI & Abdominal Exam: Soft. absent: Distended, Firm, Guarding, Rigid, Tenderness - Back Exam Back Exam: NORMAL INSPECTION - Neurological Exam Neurological Exam: Alert, Awake, Oriented x3 - Psychiatric Exam Psychiatric exam: Normal Affect, Normal Mood - Skin Skin Exam: Dry, Intact, Normal Color, Warm Assessment and Plan - Assessment and Plan (Free Text) Assessment: 81yo F with PMHx including ?pneumonia, and Breast CA here for evaluation of shortness of breath, cough and chest pain. 1. CHF CXR - pulmonary vascular congestion BNP - 4410 Cardiology consulted, appreciate recs ECHO - LV - 27.8%; MR, Pulm HTN, RVSP = 51mmhg Troponin x3 indeterminate Cardiology plans for Cardiac CATH in the AM NPO past mn Procal negative CTA reviewed. No PE. Bilateral pleural effusions, right greater than left. Possible Pulm HTN. Consider CHF exacerbation ID consulted, appreciate recs Possible discontinue abx Blood cxs - NGTD x24hrs Xopenex breathing treatments Supplemental O2 LE doppler - negative DVT study on Lasix 2. Atypical Chest pain Cardiology consulted plan for cardiac cath tomorrow AM troponin x3 indeterminate Thyroid panel - wnl Lovenox 60mg SC BID ASA Plavix 3. Elevated Triglycerides Chol 168 LDL 117 Lipitor started 4. PPx on theraputic lovenox Protonix Further recs as per Dr. Gino Amato PGY1
--- NOTE | 2017-03-30 11:00 | PN ---
DATE: 03/30/2017 CARDIOLOGY FOLLOWUP SUBJECTIVE: The patient's breathing is much improved. PHYSICAL EXAMINATION: VITAL SIGNS: The blood pressure is 125/65, the heart rate is in the 70s. The patient is afebrile. NECK: Negative JVD. LUNGS: Without rales. HEART: Reveals S1, S2. EXTREMITIES: Without edema. LABORATORY DATA: The hemoglobin is 12.1. Troponin is 0.07, BUN and creatinine are unremarkable. Echocardiogram reveals global LV hypokinesis with an ejection fraction of 27% with pulmonary hypertension. IMPRESSION: 1. Acute systolic congestive heart failure. 2. Non-ST elevation myocardial infarction. 3. High probability for coronary artery disease. 4. Pulmonary hypertension. 5. It is likely his infiltrate is secondary to congestive heart failure. PLAN: Given these findings, I have discussed cardiac catheterization with the patient in detail. The patient is agreeable. We will discuss with ID about stopping her antibiotics. The patient understands catheterization and is agreeable. We will arrange for the morning. Leo Yarbrough MD
[2017-03-30] MEDS: Metoprolol Succinate 25 mg XL Tab PO SCH (11:18)
--- NOTE | 2017-03-30 14:19 | CP.PCM.PN ---
Subjective - Date & Time of Evaluation Date of Evaluation: 03/30/17 Time of Evaluation: 10:10 - Subjective Subjective: Comfortable, not in distress, afebrile, breathing much better, no chest pain, no nausea, no diarrhea, no cough,no abdominal pain. Objective - Vital Signs/Intake and Output Vital Signs (last 24 hours): Temp Pulse Resp BP Pulse Ox 98.3 F 76 20 125/68 94 L 03/30/17 06:00 03/30/17 06:00 03/30/17 06:00 03/30/17 06:00 03/30/17 06:00 Intake and Output: 03/29/17 03/30/17 18:59 06:59 Intake Total 960 300 Balance 960 300 - Medications Medications: Current Medications Aspirin (Ecotrin) 81 mg PO DAILY [facility] Last Admin: 03/29/17 13:55 Dose: 81 mg Atorvastatin Calcium (Lipitor) 40 mg PO DAILY [facility] Last Admin: 03/29/17 10:06 Dose: 40 mg Benzonatate (Tessalon Perles) 200 mg PO TID [facility] Last Admin: 03/29/17 18:07 Dose: 200 mg Clopidogrel Bisulfate (Plavix) 75 mg PO DAILY [facility] Enoxaparin Sodium (Lovenox) 60 mg SC BID [facility] PRN Reason: Protocol Last Admin: 03/29/17 18:07 Dose: 60 mg Furosemide (Lasix) 40 mg IVP Q12H [facility] Last Admin: 03/29/17 18:07 Dose: 40 mg Doxycycline Hyclate 100 mg/ (Sodium Chloride) 100 mls @ 100 mls/hr IVPB Q12 [facility] PRN Reason: Protocol Last Admin: 03/29/17 21:45 Dose: 100 mls/hr Aztreonam (Azactam 2 Gm) 100 mls @ 100 mls/hr IVPB Q8 [facility] PRN Reason: Protocol Stop: 04/02/17 22:59 Last Admin: 03/30/17 05:31 Dose: 100 mls/hr Insulin Human Regular (Humulin R Low) 0 units SC ACHS [facility] PRN Reason: Protocol Last Admin: 03/29/17 23:03 Dose: Not Given Levalbuterol HCl (Xopenex) 0.63 mg IH [id number] [facility] Last Admin: 03/30/17 01:36 Dose: 0.63 mg Pantoprazole Sodium (Protonix Ec Tab) 20 mg PO 0600,1600 [facility] Last Admin: 03/29/17 17:09 Dose: 20 mg - Labs Labs: 03/30/17 05:20 03/30/17 05:20 PT 11.0 Seconds (9.9-11.8) 03/29/17 05:50 INR 1.02 (0.93-1.08) 03/29/17 05:50 APTT 26.8 Seconds (23.7-30.8) 03/29/17 05:50 - Constitutional Appears: Non-toxic, No Acute Distress - Head Exam Head Exam: NORMAL INSPECTION - ENT Exam ENT Exam: Mucous Membranes Moist - Neck Exam Neck Exam: absent: Lymphadenopathy, Meningismus - Respiratory Exam Respiratory Exam: Decreased Breath Sounds - Cardiovascular Exam Cardiovascular Exam: +S1, +S2 - GI/Abdominal Exam GI & Abdominal Exam: Soft. absent: Tenderness Assessment and Plan - Assessment and Plan (Free Text) Plan: Assessment Systemic Inflammatory Response Syndrome, consider due to acute on chronic CHF, with no evidence of pneumonia breast cancer acute renal failure Plan will discontinue Doxycycline and Azactam; PCT is low, blood cx are negative; reviewed CT chest discussed with Dr. Yarbrough will continue to monitor clinically off antibiotics
--- NOTE | 2017-03-30 14:25 | PN ---
DATE: 03/30/2017 LOCATION: The patient is now seen in room number 260, bed 1. SUBJECTIVE: The patient is sitting up in the bed. The patient stated that she is feeling wonderful, her shortness of breath and coughing has almost completely resolved and the patient is feeling back to normal according to her. The patient denies any chest pain and denies any shortness of breath. Denies any nausea, denies any vomiting, denies any diarrhea, and denies any constipation. PHYSICAL EXAMINATION: VITAL SIGNS: T-max is 98.5. Telemetry shows sinus rhythm, heart rate in 70s and 80s. Blood pressure 125/65 and 135/60, respirations 20, O2 saturation is 94% to 99%. INTAKE AND OUTPUT: Not documented correctly. HEAD: Normocephalic and atraumatic. HEENT: Examination shows pink conjunctivae. Anicteric sclerae. No oropharyngeal lesion. No neck rigidity. RESPIRATORY: Chest examination is symmetrical. LUNGS: Examination shows positive decreased breath sound at the bases. Positive rhonchi bilaterally. No , rales or wheezing noted. CARDIOVASCULAR: Examination reveals S1 and S2. Positive systolic murmur left sternal border, right second intercostal space. ABDOMEN: Soft. Positive bowel sound. GENITALIA: Female. RECTAL: Examination is deferred. EXTREMITIES: Shows trace swelling around the ankle with positive varicose veins. MUSCULOSKELETAL: Examination shows a body mass index of 25. NEUROLOGIC: The patient is alert, awake, oriented x3, and follows command. Moves upper and lower extremity without assistance. Gait examination could not be tested. DIAGNOSTIC STUDIES: Diagnostics from 03/30/2017, WBC count is down to 8.0 from 15.5, hemoglobin and hematocrit of 12.1 and 36.6, and platelets of 162. PT and PTT was normal. Lactic acid was 2.9 and 3.2. Chemistries shows sodium of 144, potassium of 3.8, chloride of 104, CO2 of 24, anion gap of 20, BUN of 31, and creatinine of 1.0. GFR is greater than 60. Glucose is 157, hemoglobin A1c is 6.4, fructosamine is normal at 240, lactic acid was 2.8, phosphorus of 5.0, and magnesium of 1.3. AST of 82. Troponin has peaked up to 0.019. BNP is 4410. Blood cultures no growth. The patient's CT of the chest, CT angio was reviewed from yesterday. Venous Doppler of both lower extremities was reviewed which was negative for DVT. Echocardiogram which was done yesterday was reviewed. The results explained to the patient. The patient's EKG from today shows sinus rhythm, left anterior hemiblock, age indeterminate anterior infarct with T-wave inversion in II, III, aVF and V1-V6. IMPRESSION AND PLAN 1. Acute systolic pulmonary edema and congestive heart failure. 2. Non-ST elevation myocardial infarction. 3. Lactic acidosis. 4. Hypertension. 5. Transient hypoxemia. 6. Leukocytosis with granulocytosis. 7. Hypoxemia. 8. History of non-insulin requiring diabetes mellitus, history of hypertension, history of dyslipidemia and history of right breast carcinoma status post chemotherapy and radiation therapy. 9. History of diabetes mellitus, well controlled with hemoglobin A1c of 6.4. 10. Hyperphosphatemia. 11. Hypomagnesemia. 12. Acute systolic congestive heart failure with elevated brain natriuretic peptide. 13. Hypercholesterolemia with elevated LDL and decreased HDL. 14. Pulmonary arterial hypertension. 15. Moderate bilateral pleural effusion, right more than the left with bibasilar left atelectasis. 16. Pulmonary demand congestive heart failure. 17. Bibasilar chronic scarring versus atelectasis. 18. Cardiomegaly with left ventricular hypertrophy. 19. Mediastinal nonspecific lymphadenopathy. 20. Degenerative joints and spondylosis of the thoracic spine. 21. Thoracic spine hemangioma. 22. Dilated cardiomyopathy with left ventricular ejection fraction of 28%. 23. Pulmonary arterial with right ventricular systolic pressure of 51 mmHg. 24. Concentric left ventricle hypertrophy and severely impaired left ventricular systolic function with global left ventricular hypokinesis. 25. Moderately dilated left atrium. 26. Mildly thickened aortic valve. 27. Moderate to severe mitral regurgitation with moderately thickened mitral valve. 28. Moderate pulmonary arterial hypertension. 29. Moderate pulmonic regurgitation. 30. Pulmonary vascular congestion with bilateral lower lobes alveolar infiltrates and bilateral pleural effusion, right more than the left and bibasilar atelectasis with cardiomegaly. 31. Left axis deviation with age indeterminate inferior infarct and inferolateral coronary ischemia. 32. Questionable incomplete left bundle-branch block. 33. Incomplete left bundle-branch block. 34. Systemic inflammatory response syndrome, probably secondary to congestive heart failure. 35. Acute systolic congestive heart failure. 36. Non-ST elevation myocardial infarction. 37. Diabetes mellitus. 38. Hypertriglyceridemia, hypercholesteremia with elevated LDL and decreased HDL. 39. Non-insulin requiring diabetes mellitus, well controlled with hemoglobin A1c of 6.4 and fructosamine of 240. CURRENT MEDICATIONS: Aspirin 81 mg daily, Humulin low-dose sliding scale coverage at breakfast and at bedtime, K-Dur 20 mEq twice a day, Lasix decreased to 40 mg IV daily, and Lipitor 40 mg daily. T The patient is given magnesium sulfate rider x2. The patient is on Plavix 75 mg daily started by Dr. Yarbrough from today. The patient received Plavix 300 mg yesterday. The patient is on Protonix 40 mg daily Tessalon Perles 200 three times a day, Toprol XL 25 mg daily. PLAN: At this time, the patient has been scheduled for cardiac catheterization tomorrow. The patient has been ordered serial labs. Repeat lactic acid ordered, consultation cardiology, and infectious disease. EKG ordered.. The patient's Lovenox has been discontinued by Dr. Leo Yarbrough. The patient is on oxygen 2 liters and repeat EKG ordered. Heart healthy diet. The patient is n.p.o. for cardiac catheterization tomorrow. The patient is agreeable to proceed with further diagnostic therapeutic intervention. Dictated and electronically signed, not read. Steven Christian MD
--- NOTE | 2017-03-30 23:11 | CARD ---
APPROVED REPORT EKG Measurement Heart [id number] <Conclusion> Normal sinus rhythm Left axis deviation Anterior infarct, age undetermined T wave abnormality, consider lateral ischemia Prolonged QT Abnormal ECG
[2017-03-31 05:52] LABS: BASO # 0.01 K/mm3 (0.0-2.0); BASO % 0.1 % (0.0-3.0); EOS # 0.3 (0.0-0.7); EOS % 3.6 % (1.5-5.0); GRAN # 4.59 (1.4-6.5); GRAN % 61.9 % (50.0-68.0); HEMATOCRIT 37.7 % (36.0-48.0); LYMPH % 27.3 % (22.0-35.0); MEAN CELL VOLUME 88.1 fl (80.0-105.0); MEAN CORPUSCULAR HEMOGLOBIN 29.7 pg (25.0-35.0); MEAN CORPUSCULAR HGB CONC 33.7 g/dl (31.0-37.0); MEAN PLATELET VOLUME 10.9 fl (7.0-11.0); MONO # 0.5 (0.1-0.6); MONO % 7.1 % (1.0-6.0); RED CELL DISTRIBUTION WIDTH 13.8 % (11.5-14.5); WHITE BLOOD COUNT 7.4 10^3/ul (4.5-11.0)
[2017-03-31 06:00] LABS: ALB/GLOB RATIO 1.5 (1.1-1.8); ALKALINE PHOSPHATASE 55 U/L (38-126); ALT/SGPT 42 U/L (7-56); AST/SGOT 64 U/L (14-36); BILIRUBIN,DIRECT 0.3 mg/dL (0.0-0.4); BILIRUBIN,TOTAL 0.7 mg/dL (0.2-1.3); BLOOD UREA NITROGEN 38 mg/dL (7-21); CALCIUM 9.3 mg/dL (8.4-10.5); CARBON DIOXIDE 23 mmol/L (21-33); CHLORIDE 106 mmol/L (98-107); GFR AFRICAN-AMERICAN > 60; GLUCOSE,RANDOM 138 mg/dL (70-110); MAGNESIUM 2.1 mg/dL (1.7-2.2); PHOSPHOROUS 4.9 mg/dL (2.5-4.5); POTASSIUM 4.5 mmol/L (3.6-5.0); SODIUM 142 mmol/L (132-148); TOTAL PROTEIN 6.6 g/dL (5.8-8.3)
[2017-03-31] MEDS ORDERED: Lidocaine 2% Inj (20ml) ONE (06:13)
[2017-03-31] MEDS ORDERED: Phenylephrine 10 mg/ml Inj ONE (06:14)
[2017-03-31] MEDS ORDERED: Nitroglycerin 50mg in D5W 50 MG/250 ML BOTTLE IV ONE (06:14)
[2017-03-31] MEDS ORDERED: Iodixanol 320 MG/ML 100 ML BOTTLE IV ONE (06:14)
[2017-03-31] MEDS ORDERED: Iohexol 350mgl/ml 50 ML ONE (06:14)
[2017-03-31] MEDS ORDERED: Iodixanol 320 MG/ML 200 ML BOTTLE IV ONE (06:14)
[2017-03-31] MEDS: Pantoprazole 20 mg EC Tab PO SCH ×2 (06:15→16:48)
[2017-03-31] MEDS ORDERED: Midazolam 2 MG/2 ML VIAL ONE ×2 (07:02→07:50)
[2017-03-31] MEDS: Potassium Chloride 20 mEq ER Tab PO SCH ×2 (09:49→17:32)
--- NOTE | 2017-03-31 10:11 | IP.NPCORE ---
Congested Heart Failure - CM - Type of Heart Failure: Systolic dysfunction:: Acute on Chronic - LVF prior to this hospilization,if known LVF prior to this hospilization: Ejection Fraction less than 40% - Ejection Fraction % Fraction %: 28 - Source Source: Echo - Date: Date: 03/29/17 - KAI or ARB KAI or ARB: Name/dose/frequency: lisinopril 10mg daily at home not in hospital Contraindications to KAI/ARB:: Hypotension - Beta Mariana Beta Mariana prescribed: Name/dose/frequency: metoprolol XL 25mg daily - Digoxin Contraindication: Not indicated - Diuretic Diuretic Therapy (lasix, thiazides, aldactone) (fior for EF less than 30%): Lasix 40mg IV daily in hospital - Nitrate Therapy Contraindication:: Not indicated - Smoking Cessation Smoking Cessation Counseling: No - Recommendation Recommendation for ICD referral or CTR: Yes (as out patient )
[2017-03-31] MEDS ORDERED: Sodium Chloride 0.9% 1,000 ML IV SCH (10:30)
[2017-03-31] MEDS: Insulin Reg-LOW-Coverage SC SCH ×3 (12:09→22:36)
--- NOTE | 2017-03-31 14:06 | CARDCATH ---
PROCEDURE DATE: 03/31/2017 HISTORY: The patient is an 81-year-old woman who presents with CHF, who was found to have an ischemic dilated cardiomyopathy. Her troponins were mildly elevated. Because of this and a high probability for CAD, cardiac catheterization was recommended. PROCEDURE: Left heart catheterization with coronary arteriography, supra-aortic valvular injection as well as PTCA and stent were performed. The right femoral artery was cannulated with 6-Belarusian sheath. There were no complications. The findings on catheterization revealed a left ventricle that was dilated and diffusely hypokinetic with an estimated ejection fraction of 30%. Her coronary anatomy revealed a right dominant circulation. There was an 80-90% ostial RCA stenoses noted with the rest of the RCA revealing diffuse intimal irregularities. The left main artery was unremarkable. The LAD revealed diffuse atherosclerosis with an 80-90% stenosis in the proximal portion. The circumflex artery was diffusely diseased with a 70% stenosis in the midportion followed by a tandem irregular 70% stenosis distal to it. Supra-aortic valvular injection revealed no aortic insufficiency. The patient was started on intravenous Angiomax. Under fluoroscopic guide, the guiding catheter was placed in the ostium of the left main artery. An 0.014 ATW wire was used to cross the LAD lesion. A 3.5 x 9 mm drug-eluting stent was placed and deployed at 15 atmospheres of pressure. Repeat coronary arteriography revealed an excellent result with no residual stenosis and JOHNATHON III flow. The wire was then brought back and placed into the circumflex artery. Two drug-eluting stents were placed in the midportion of the of the circumflex artery. Both stents were 12 mm in length and 2.5 in diameter. After balloon deflation removal, repeat coronary arteriography revealed an excellent result with no residual stenosis and JOHNATHON III flow. The patient tolerated the procedure well. In summary, the procedure was successful PTCA and stent of a proximal LAD stenoses as well as two lesions in the circumflex artery with drug-eluting stents. Cardiac catheterization reveals triple vessel disease with a diffusely abnormal LV with an EF of 30%. Given these findings, the patient will remain on aspirin indefinitely and Plavix for at least a year. I have discussed this with her daughter in detail. We will need to bring her back in 1 week for PTCA and stent of the ostium of the RCA. Leo Yarbrough MD [facility] # [id number]
--- NOTE | 2017-03-31 14:22 | PN ---
DATE: 03/31/2017 LOCATION: The patient is seen now in room 274, bed 2. SUBJECTIVE: The patient is post cardiac catheterization and angioplasty. Overnight nurses' note were reviewed. The patient states stable without any adverse events overnight. PHYSICAL EXAMINATION VITAL SIGNS: T-max 98.5. Telemetry shows normal sinus rhythm, heart rate in 70s and 60s. Blood pressure in the last 24 hours between 125/65, 124/58, 135/76. Respiration is 20. O2 sat 96%. Intake and output does not appear to be correctly documented. HEENT: Head examination normocephalic, atraumatic. HEENT examination shows pink conjunctivae. Anicteric sclerae. No oropharyngeal lesion. NECK: No neck rigidity. CHEST: Shows decrease in crackles, rales, and decrease in rhonchi; improving air entry. CARDIOVASCULAR: S1, S2, regular rhythm. Positive systolic murmur, left sternal border, , right second intercostal space. ABDOMEN: Soft. Positive bowel sounds. GENITALIA: Female. RECTAL: Deferred. EXTREMITIES: Decreasing swelling and pitting edema of the lower extremity. Positive varicose veins. MUSCULOSKELETAL: Examination shows a body mass index of 25. NEUROLOGIC: The patient is alert, awake, responsive. He is presently unable to ambulate. Neuro examination is limited, as the patient is lying in the bed. The patient is on bed, status post angioplasty and cardiac catheterization. DIAGNOSTICS DATA: On 03/31/2017; WBC 7.4, hemoglobin/hematocrit 12.7/37.7, platelet 175. Granulocytes are normal. Sodium 142, potassium 4.5, chloride 106, CO2 is 23, anion gap 13, BUN 38, creatinine 0.9, GRF greater than 60, glucose 138, 234, 176, 159, 166; repeat lactic acid is 1.6 today; peak lactic was 2.8 and 3.2 on VBG. Phosphorus 4.9, magnesium 2.1. AST is 64, down from 82, BNP is down to 1590 from 4410. Blood cultures, no growth. IMPRESSION AND PLAN: 1. Status post successful angioplasty and stent placement of left anterior descending and circumflex artery. 2. Mild borderline non-ST elevation myocardial infarction. 3. Acute pulmonary edema. 4. Hypertension. 5. Transient hypoxemia. 6. Leukocytosis with granulocytosis. 7. Hypoxemia. 8. Lactic acidosis. 9. Non-insulin requiring diabetes mellitus, well-controlled with hemoglobin A1c of 6.4 and fructosamine of 240. 10. Acute systolic congestive heart failure and pulmonary edema with elevated BNP. 11. Transient hyperglycemia. 12. Hypertriglyceridemia, hypercholesterolemia, and elevated LDL and decreased HDL. 13. Left axis deviation. 14. Age-indeterminate anterolateral infarct. 15. Inferolateral coronary ischemic changes. 16. Left ventricular ejection fraction of 28%. 17. Pulmonary arterial hypertension with right ventricular systolic pressure of 51 mmHg. 18. Concentric left ventricle hypertrophy with severely impaired left ventricular systolic function with global left ventricular hypokinesis and grade I abnormal relaxation pattern. 19. Moderately dilated left atrium and mildly dilated right atrium. 20. Mildly thickened aortic valve. 21. Moderately thickened mitral valve. 22. [id number] mitral regurgitation. 23. Moderate pulmonary arterial hypertension with right ventricular systolic pressure of 51 mmHg. 24. Moderate pulmonic valvular regurgitation. 25. Incomplete left bundle-branch block. 26. Left anterior hemiblock. 27. Age-indeterminate anterior infarct. PLAN: At this time, the patient has been ordered serial labs. The patient is on aspirin 81 daily, Humulin low dose a.c. and h.s., K-Dur 20 mEq twice a day. The patient's potassium is monitored, which is 4.5. The patient is on Lasix 40 iv daily, Lipitor 40 mg daily, Plavix 75 mg daily, Protonix 20 mg twice a day. The patient is on post-angioplasty IV fluid 50 cc an hour at 5:00 p.m. today. The patient is on Tessalon Perles 200 three times a day, Toprol-XL 25 mg daily. Repeat chest x-ray is ordered. At present, the patient will be ordered above therapeutic intervention. The patient will be monitored post-angioplasty. As for cardiology, the patient needs to be brought back next week for angioplasty of RCA, which the patient is agreeable for. Dictated and electronically signed, not read. Steven Christian MD
--- NOTE | 2017-03-31 14:42 | CP.PCM.PN ---
Subjective - Date & Time of Evaluation Date of Evaluation: 03/31/17 Time of Evaluation: 10:00 - Subjective Subjective: Medicine Progress note. Dr. Christian Pt seen and examined at bedside. No acute events overnight. Patient is s/p cardiac cath this AM. Patient denies any current symptoms. No CP/SOB. states that she feels much better. No new complaints. Objective - Vital Signs/Intake and Output Vital Signs (last 24 hours): Temp Pulse Resp BP Pulse Ox 98.3 F 63 18 111/63 96 03/31/17 11:46 03/31/17 13:35 03/31/17 13:35 03/31/17 13:35 03/31/17 05:38 Intake and Output: 03/31/17 03/31/17 06:59 18:59 Intake Total 180 Balance 180 - Medications Medications: Current Medications Aspirin (Ecotrin) 81 mg PO DAILY [facility] Last Admin: 03/30/17 09:18 Dose: 81 mg Atorvastatin Calcium (Lipitor) 40 mg PO DAILY [facility] Last Admin: 03/31/17 09:49 Dose: 40 mg Benzonatate (Tessalon Perles) 200 mg PO TID [facility] Last Admin: 03/31/17 09:49 Dose: 200 mg Clopidogrel Bisulfate (Plavix) 75 mg PO DAILY [facility] Last Admin: 03/30/17 09:17 Dose: 75 mg Furosemide (Lasix) 40 mg IVP DAILY [facility] Last Admin: 03/31/17 09:50 Dose: 40 mg Sodium Chloride (Sodium Chloride 0.9%) 1,000 mls @ 50 mls/hr IV .Q20H [facility] Stop: 03/31/17 17:00 Last Admin: 03/31/17 10:30 Dose: 50 mls/hr Insulin Human Regular (Humulin R Low) 0 units SC ACHS [facility] PRN Reason: Protocol Last Admin: 03/31/17 12:09 Dose: 1 units Lisinopril (Zestril) 2.5 mg PO DAILY [facility] Metoprolol Succinate (Toprol Xl) 25 mg PO BRK [facility] Last Admin: 03/30/17 11:18 Dose: 25 mg Pantoprazole Sodium (Protonix Ec Tab) 20 mg PO 0600,1600 [facility] Last Admin: 03/31/17 06:15 Dose: Not Given Potassium Chloride (K-Dur 20 Meq Er Tab) 20 meq PO BID [facility] Last Admin: 03/31/17 09:49 Dose: 20 meq - Labs Labs: 03/31/17 05:10 03/31/17 05:10 PT 11.0 Seconds (9.9-11.8) 03/29/17 05:50 INR 1.02 (0.93-1.08) 03/29/17 05:50 APTT 26.8 Seconds (23.7-30.8) 03/29/17 05:50 - Constitutional Appears: Well, No Acute Distress - Head Exam Head Exam: ATRAUMATIC, NORMAL INSPECTION, NORMOCEPHALIC - Eye Exam Eye Exam: EOMI, Normal appearance - ENT Exam ENT Exam: Mucous Membranes Moist - Respiratory Exam Respiratory Exam: Clear to Ausculation Bilateral, Rhonchi (mild, improving rhonchi), NORMAL BREATHING PATTERN. absent: Wheezes, Respiratory Distress - Cardiovascular Exam Cardiovascular Exam: RRR. absent: JVD - GI/Abdominal Exam GI & Abdominal Exam: Soft. absent: Guarding, Rigid, Tenderness, Rebound - Extremities Exam Extremities Exam: Full ROM, Normal Inspection. absent: Calf Tenderness Additional comments: rt groin cath access site with no evidence of hematoma - Neurological Exam Neurological Exam: Alert, Awake, Oriented x3 - Skin Skin Exam: Dry, Intact, Normal Color, Warm Assessment and Plan - Assessment and Plan (Free Text) Assessment: 81yo F with PMHx including ?pneumonia, and Breast CA here for evaluation of shortness of breath, cough and chest pain. 1. CHF CXR - pulmonary vascular congestion BNP improving Cardiology consulted, appreciate recs ECHO - LV - 27.8%; MR, Pulm HTN, RVSP = 51mmhg Troponin x3 indeterminate S/p Cardiac CATH today with stent placed in LAD, CIRC will need repeat CATH next week fro RCA angioplasty NS@50 Monitor potassium levels on K-Dur supplements Procal negative CTA reviewed. No PE. Bilateral pleural effusions, right greater than left. Possible Pulm HTN. Consider CHF exacerbation ID consulted, appreciate recs Discontinued ABX Blood cxs - NGTD x48hrs Xopenex breathing treatments Supplemental O2 LE doppler - negative DVT study on Lasix started Lisinopril Metoprolol will repeat CXR tonight 2. Atypical Chest pain Cardiology consulted plan for cardiac cath tomorrow AM troponin x3 indeterminate Thyroid panel - wnl ASA Plavix 3. Elevated Triglycerides Chol 168 LDL 117 Lipitor started 4. Hyperglycemia Insulin SS Accuchecks HbA1c 6.4 5. PPx Protonix TANGELA samuel Further recs as per Dr. Gino Amato PGY1
[2017-03-31 17:50] VITALS: RESP 20
--- NOTE | 2017-03-31 18:47 | CARD ---
APPROVED REPORT EKG Measurement Heart [id number] ID [id number] <Conclusion> Sinus rhythm with fusion complexes Left axis deviation Anterolateral infarct, age undetermined T wave abnormality, consider inferior ischemia Prolonged QT Abnormal ECG
[2017-04-01 00:05] VITALS: TEMP 97.8
[2017-04-01 06:09] VITALS: O2SAT 96
[2017-04-01] MEDS: Pantoprazole 20 mg EC Tab PO SCH (06:47)
[2017-04-01] MEDS: Insulin Reg-LOW-Coverage SC SCH ×2 (07:55→12:37)
[2017-04-01 07:57] LABS: ALB/GLOB RATIO 1.5 (1.1-1.8); BILIRUBIN,DIRECT 0.2 mg/dL (0.0-0.4); BILIRUBIN,TOTAL 0.8 mg/dL (0.2-1.3); CALCIUM 9.2 mg/dL (8.4-10.5); MAGNESIUM 1.9 mg/dL (1.7-2.2); PHOSPHOROUS 5.2 mg/dL (2.5-4.5); POTASSIUM 4.8 mmol/L (3.6-5.0); TOTAL PROTEIN 6.5 g/dL (5.8-8.3)
[2017-04-01] MEDS: Metoprolol Succinate 25 mg XL Tab PO SCH (07:59)
--- NOTE | 2017-04-01 09:00 | RAD ---
HISTORY: CHF COMPARISON: 03/29/2017 TECHNIQUE: Chest PA and lateral FINDINGS: LUNGS: There is interval significant improvement in pulmonary venous congestion. PLEURA: No significant pleural effusion identified. No pneumothorax apparent. CARDIOVASCULAR: There is persistent moderate cardiomegaly. OSSEOUS STRUCTURES: No significant abnormalities. VISUALIZED UPPER ABDOMEN: Normal. OTHER FINDINGS: None. IMPRESSION: Interval significant improvement in pulmonary venous congestion. No active pulmonary disease.
--- NOTE | 2017-04-01 09:55 | PN ---
DATE: LOCATION: The patient is in the [facility] in [place], room 277, bed 2. SUBJECTIVE: The patient was admitted with shortness of breath and chest pain. The patient was evaluated in the emergency room, admitted into the hospital for further management. The patient was treated for congestive heart failure. The patient has had cardiac evaluation and the patient's clinical condition is improved. She is discharged today. PHYSICAL EXAMINATION VITAL SIGNS: Pulse is 76, blood pressure 146/84, respirations 20. The patient's O2 sat 96% on room air. MEDICATIONS: The patient is going to be treated with Zestril. The patient will get glyburide for diabetes. The patient is on pantoprazole which is Protonix 20 mg daily, metoprolol 25 mg p.o. b.i.d., Lasix 40 mg daily, Plavix 75 mg daily. Post cardiac cath. The patient is on Lipitor 40 mg daily and aspirin 81 mg daily. ALLERGIES: THE PATIENT IS ALLERGIC TO PENICILLIN. ASSESSMENT AND PLAN: The patient has no do not resuscitate. The patient's diet is heart healthy diet. The patient will be treated for cardiac condition, diabetes mellitus, hypertension, and reflux esophagitis, peptic ulcer disease. Overall, condition is stable. The patient will continue oral medications at home and follow up with Dr. Christian. Dr. Christian is her primary care physician. Pati Sage MD
[2017-04-01] MEDS: Potassium Chloride 20 mEq ER Tab PO SCH (10:35)
[2017-04-01 10:36] VITALS: BP 135/64; PULSE 68
--- NOTE | 2017-04-01 11:26 | PN ---
DATE: 04/01/2017 CARDIOLOGY FOLLOWUP The patient is ambulating without symptoms. No chest pain. No shortness of breath. On physical exam, blood pressure 146/84, heart rate in the 70s. Neck: Negative JVD. Lungs: Without rales or S1, S2. Extremities: Without edema. The right groin site is stable. Hemoglobin is 12.7, BUN and creatinine is 38 and 1.1, glucose is 149. IMPRESSION: 1. Stable post PTCA and stent of the circumflex artery and LAD. 2. Documented triple-vessel disease. 3. Ischemic dilated cardiomyopathy. 4. Status post [id number] myocardial infarction. 5. Status post congestive heart failure. 6. Diabetes mellitus. Given these findings, the patient is doing well and stable for discharge. We will bring her back on Tuesday for PTCA of an ostial RCA 90% stenosis. Leo Yarbrough MD
--- NOTE | 2017-04-01 11:57 | CP.PCM.PN ---
Subjective - Date & Time of Evaluation Date of Evaluation: 04/01/17 Time of Evaluation: 10:45 - Subjective Subjective: Comfortable, afebrile. Objective - Vital Signs/Intake and Output Vital Signs (last 24 hours): Temp Pulse Resp BP Pulse Ox 97.8 F 71 20 141/76 96 04/01/17 06:09 04/01/17 06:09 04/01/17 06:09 04/01/17 06:09 04/01/17 06:09 Intake and Output: 03/31/17 04/01/17 18:59 06:59 Intake Total 1010 770 Output Total 1000 0 Balance 10 770 - Medications Medications: Current Medications Aspirin (Ecotrin) 81 mg PO DAILY [facility] Last Admin: 03/30/17 09:18 Dose: 81 mg Atorvastatin Calcium (Lipitor) 40 mg PO DAILY [facility] Last Admin: 03/31/17 09:49 Dose: 40 mg Benzonatate (Tessalon Perles) 200 mg PO TID [facility] Last Admin: 03/31/17 17:32 Dose: 200 mg Clopidogrel Bisulfate (Plavix) 75 mg PO DAILY [facility] Last Admin: 03/30/17 09:17 Dose: 75 mg Furosemide (Lasix) 40 mg IVP DAILY [facility] Last Admin: 03/31/17 09:50 Dose: 40 mg Insulin Human Regular (Humulin R Low) 0 units SC ACHS [facility] PRN Reason: Protocol Last Admin: 03/31/17 22:36 Dose: Not Given Lisinopril (Zestril) 2.5 mg PO DAILY [facility] Metoprolol Succinate (Toprol Xl) 25 mg PO BRK [facility] Last Admin: 03/30/17 11:18 Dose: 25 mg Pantoprazole Sodium (Protonix Ec Tab) 20 mg PO 0600,1600 [facility] Last Admin: 03/31/17 16:48 Dose: 20 mg Potassium Chloride (K-Dur 20 Meq Er Tab) 20 meq PO BID [facility] Last Admin: 03/31/17 17:32 Dose: 20 meq - Labs Labs: 03/31/17 05:10 03/31/17 05:10 PT 11.0 Seconds (9.9-11.8) 03/29/17 05:50 INR 1.02 (0.93-1.08) 03/29/17 05:50 APTT 26.8 Seconds (23.7-30.8) 03/29/17 05:50 - Constitutional Appears: Non-toxic, No Acute Distress - Head Exam Head Exam: NORMAL INSPECTION - ENT Exam ENT Exam: Mucous Membranes Moist - Neck Exam Neck Exam: absent: Meningismus - Respiratory Exam Respiratory Exam: Decreased Breath Sounds - Cardiovascular Exam Cardiovascular Exam: +S1, +S2 - GI/Abdominal Exam GI & Abdominal Exam: Soft. absent: Tenderness Assessment and Plan - Assessment and Plan (Free Text) Plan: Assessment Systemic Inflammatory Response Syndrome, consider due to acuteCHF probably from NSTEMI S/P PCI and stenting of proximal LAD and circumflex arteries, with no evidence of pneumonia breast cancer acute renal failure Plan reviewed CT chest discussed with Dr. Yarbrough will continue to monitor clinically off antibiotics since she is at risk for nosocomial infections
[2017-04-01 19:20] LABS: GLYCOMARK(R) 8.6 mcg/mL (7.5-28.4)
--- NOTE | 2017-04-02 01:24 | CARD ---
APPROVED REPORT EKG Measurement Heart [id number] LA 178P23 [id number] <Conclusion> Normal sinus rhythm Left axis deviation Left ventricular hypertrophy with QRS widening T wave abnormality, consider anterolateral ischemia Abnormal ECG
--- NOTE | 2017-04-04 09:08 | DS ---
FINAL PROGRESS NOTE/DISCHARGE SUMMARY HISTORY: The patient was discharged home after cleared by Cardiology. The patient was in room 274, bed 2. The patient's telemetry shows sinus rhythm, heart rate in 68 and 74, blood pressure 135/64, 146/84, 124/62, 110/62, respiration 18 to 20, O2 sat mid-to-high 90s. The patient was seen in coverage by Dr. De León and on 04/01/2017. The patient was seen by Infectious Disease and Cardiology. The patient's EKG on 04/01/2017 shows hypertensive cardiovascular disease with anterolateral coronary ischemia and left anterior hemiblock with incomplete left bundle branch block and T-wave inversion in II, III, aVF and V3 to V6. Repeat chest x-ray was done prior to the patient's discharge, which shows significant resolution of congestive heart failure and pulmonary vascular congestion with persistent cardiomegaly. FINAL IMPRESSION PLAN AND DISCHARGE DIAGNOSES: 1. Borderline non-ST elevation myocardial infarction. 2. Ischemic dilated cardiomyopathy. 3. Status post successful angioplasty and stent placement of the proximal left anterior descending stenosis with two lesions in the left circumflex artery. 4. Triple-vessel coronary artery disease with left ventricular ejection fraction of 30%. 5. Diffuse left ventricular hypokinesis and dilated and diffuse left ventricular hypokinesis. 6. 80-90% ostial right coronary artery stenosis with diffuse intimal irregularities of the right coronary artery. 7. 80-90% stenosis of the proximal left anterior descending artery. 8. 70% stenosis of the mid irregular 70% stenosis of the distal left circumflex artery. 9. Leukocytosis with granulocytosis. 11. Systemic inflammatory response syndrome. 11. Lactic acidosis. 12. Transaminitis. 13. Hypomagnesemia. 14. Acute systolic congestive heart failure with elevated BNP. 15. Hypertriglyceridemia and hypercholesterolemia. 16. Moderate bilateral pleural effusion, left more than the right with bibasilar atelectasis and pulmonary edema and systolic congestive heart failure. 17. Bibasilar scarring and bilateral middle lobe and lingular scarring. 18. Cardiomegaly. 19. Hypertensive cardiovascular disease. 20. Nonspecific mediastinal lymphadenopathy. 21. 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 22. Resolving systolic congestive heart failure. 23. 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 24. Left ventricular ejection fraction of 27%. 25. Pulmonary arterial hypertension with elevated right ventricular systolic pressure of 51 mmHg. 26. Global left ventricular hypokinesis with severely impaired left ventricle systolic function. 27. Moderately dilated left atrium and mildly dilated right atrium. 28. Mildly thickened aortic valve. 29. Moderately thickened mitral valve with [id number] mitral regurgitation. 30. Moderate pulmonic regurgitation. 31. Incomplete left bundle-branch block. PLAN: At this time, the patient is to be discharged after cleared by Cardiology. The patient is to be discharged home with discharge followup with Dr. Christian within 1 week. Discharge medications as per ambulatory orders. The patient's case is also referred to Cardiology for repeat angioplasty of the other coronary arteries. The patient is scheduled to return on be a hospital in 04/04/2017 for subsequent angioplasty of the other coronary arteries. DISCHARGE MEDICATIONS: The patient's discharge medications are Ecotrin 81 mg daily, Lipitor 40 mg daily, Tessalon Perles 200 three times a day, Plavix 75 mg daily, Lasix 40 mg daily. The patient is to resume Micronase 10 mg daily, Zestril 10 mg daily, metformin 1000 mg twice a day, Toprol-XL 25 mg daily, Protonix 40 mg daily. During this hospitalization, the patient was extensively explained about the details of her medical condition, need for compliance with the medicines. The patient's medications was electronically scribed to the pharmacy. At present, the patient is to be discharged home with discharge followup with Dr. Christian and Dr. Yarbrough. Time spent in the discharge process, more than 45 minutes. Steven Christian MD
== END 2017-04-01 13:27 | disposition home or self-care (01) | DRG 246 ==
LOC: ED 04:56 → ERH 06:31 → 2RNO 09:29 → 2RSO 03-31 08:41
PROVIDERS: ADMIT Internal Medicine; ATTEND Internal Medicine
PROC: 027135Z Dilation of Coronary Artery, Two Arteries with Two Drug-eluting Intraluminal Devices, Percutaneous Approach (ICD-10-PCS; principal; 2017-03-31)
PROC: 4A023N7 Measurement of Cardiac Sampling and Pressure, Left Heart, Percutaneous Approach (ICD-10-PCS; 2017-03-31)
PROC: B2151ZZ Fluoroscopy of Left Heart using Low Osmolar Contrast (ICD-10-PCS; 2017-03-31)
PROC: B2111ZZ Fluoroscopy of Multiple Coronary Arteries using Low Osmolar Contrast (ICD-10-PCS; 2017-03-31)
PROC: 3E073KZ Introduction of Other Diagnostic Substance into Coronary Artery, Percutaneous Approach (ICD-10-PCS; 2017-03-31)
DX: I21.4 Non-ST elevation (NSTEMI) myocardial infarction (principal); I50.21 Acute systolic (congestive) heart failure; R65.11 Systemic inflammatory response syndrome (SIRS) of non-infectious origin with acute organ dysfunction; N17.9 Acute kidney failure, unspecified; I42.0 Dilated cardiomyopathy; E87.2 Acidosis; J98.11 Atelectasis; I11.0 Hypertensive heart disease with heart failure; E11.65 Type 2 diabetes mellitus with hyperglycemia; I25.5 Ischemic cardiomyopathy; E78.2 Mixed hyperlipidemia; E83.42 Hypomagnesemia; I25.10 Atherosclerotic heart disease of native coronary artery without angina pectoris; I27.2 Other secondary pulmonary hypertension; R09.02 Hypoxemia; E83.39 Other disorders of phosphorus metabolism; M47.814 Spondylosis without myelopathy or radiculopathy, thoracic region; I37.1 Nonrheumatic pulmonary valve insufficiency; I34.0 Nonrheumatic mitral (valve) insufficiency; I44.7 Left bundle-branch block, unspecified; K27.9 Peptic ulcer, site unspecified, unspecified as acute or chronic, without hemorrhage or perforation; K21.0 Gastro-esophageal reflux disease with esophagitis; Z79.84 Long term (current) use of oral hypoglycemic drugs; Z87.01 Personal history of pneumonia (recurrent); Z85.3 Personal history of malignant neoplasm of breast; Z88.0 Allergy status to penicillin

== ENCOUNTER 2017-04-04 07:36 | Day surgery (SDC) | payer MEDICARE, OTHER ==
[2017-04-01 13:06] VITALS: BMI 18.1
[2017-04-04 08:24] LABS: BASO # 0.03 K/mm3 (0.0-2.0); BASO % 0.4 % (0.0-3.0); EOS # 0.2 (0.0-0.7); EOS % 2.4 % (1.5-5.0); GRAN # 6.03 (1.4-6.5); GRAN % 72.8 % (50.0-68.0); HEMATOCRIT 37.8 % (36.0-48.0); LYMPH # 1.5 (1.2-3.4); LYMPH % 17.8 % (22.0-35.0); MEAN CELL VOLUME 89.6 fl (80.0-105.0); MEAN CORPUSCULAR HEMOGLOBIN 29.1 pg (25.0-35.0); MEAN CORPUSCULAR HGB CONC 32.5 g/dl (31.0-37.0); MEAN PLATELET VOLUME 10.7 fl (7.0-11.0); MONO # 0.6 (0.1-0.6); MONO % 6.6 % (1.0-6.0); RED CELL DISTRIBUTION WIDTH 13.5 % (11.5-14.5); WHITE BLOOD COUNT 8.3 10^3/ul (4.5-11.0)
[2017-04-04 08:33] LABS: BLOOD UREA NITROGEN 36 mg/dL (7-21); CALCIUM 9.7 mg/dL (8.4-10.5); CARBON DIOXIDE 26 mmol/L (21-33); CHLORIDE 106 mmol/L (95-110); GFR AFRICAN-AMERICAN > 60; GLUCOSE,RANDOM 177 mg/dL (70-110); POTASSIUM 4.6 mmol/L (3.6-5.0); SODIUM 145 mmol/L (132-148)
[2017-04-04 08:34] LABS: INR 1.01 (0.93-1.08); PARTIAL THROMBOPLASTIN TIME 28.3 Seconds (23.7-30.8)
[2017-04-04] MEDS ORDERED: Iodixanol 320 MG/ML 200 ML BOTTLE IV ONE (08:34)
[2017-04-04] MEDS ORDERED: Iohexol 350mgl/ml 50 ML ONE (08:34)
[2017-04-04] MEDS ORDERED: Lidocaine 2% Inj (20ml) ONE (08:35)
[2017-04-04] MEDS ORDERED: Iodixanol 320 MG/ML 100 ML BOTTLE IV ONE (08:40)
[2017-04-04] MEDS ORDERED: Midazolam 2 MG/2 ML VIAL ONE ×2 (08:44→09:10)
[2017-04-04] MEDS ORDERED: Nitroglycerin 50mg in D5W 0 MG/0 ML BOTTLE IV ONE (09:15)
[2017-04-04] MEDS ORDERED: Sodium Chloride 0.9% 1,000 ML IV SCH (10:15)
[2017-04-04] MEDS ORDERED: Atropine 0.4 mg/ml Inj (1 mL) IV PRN (11:58)
--- NOTE | 2017-04-04 14:02 | CP.PCM.HP ---
<KENTRELL JOHNSON - Last Filed: 04/04/17 13:43> History of Present Illness - History of Present Illness History of Present Illness: CC: S/P Cardiac Catherization HPI: 81yo F with PMHx of breast CA, ?Hx of PNA returns to [facility] [place] [facility] for scheduled repeat cardiac catherization for subsequent angioplasty. Pt was admitted on 03/29 for evaluation of worsening SOB and chest pain. Workup revealed borderline NSTEMI and ischemic dilated cardiomyopathy. Pt underwent cardiac catherization that showed tripple vessel coronary artery disease with LVEF of 30%. At that time, pt had a successful angioplasty and stent placement of the proximal LAD. Pt was discharged on 04/01/17 after being cleared by cardiology and instructed to follow up with Dr. Christian out-patient. Today, underwent precutaneous cardiac intervention of the RCA. Patient was seen and examined status post PCI. Pt tolerated procedure well. Pt denies any postoperative complications. Pt denied CP, SOB, n/v/d, fever, chills, abdominal pain, fatigue, pain, or dysuria. PMD: in [place]. PMHx: Breast CA. ?hx of Pneumonia in the past PSHx: Denies Family Hx: denies Social Hx: Denies tobacco, Denies ETOH, Denies illicit drugs. Patient lives in [place] visits her son in [place] often Allergy: Penicillin Medications: Ecotrin 81 mg daily Lipitor 40 mg daily Tessalon perles 200 mg TID Plavix 75 mg daily Lasix 40 mg daily Micronase 10 mg daily Zestril 10 mg daily Metformin 1000 mg BID Toprol-XL 25 mg daily Protonix 40 mg daily Present on Admission - Present on Admission Any Indicators Present on Admission: No Review of Systems - Review of Systems Review of Systems: 12 point ROS reviewed and are negative other than what is stated in HPI Past Patient History - Infectious Disease Hx of Infectious Diseases: None - Past Medical History & Family History Past Medical History?: Yes - Past Social History Smoking Status: Never Smoked - CARDIAC Hx Pacemaker: No - NEUROLOGICAL Hx Paralysis: No - HEENT Hx Cataracts: Yes - ENDOCRINE/METABOLIC Hx Diabetes Mellitus Type 2: Yes - HEMATOLOGICAL/ONCOLOGICAL Hx Blood Transfusions: No - INTEGUMENTARY Hx Dermatological Problems: Yes Other/Comment: right hand, 3 digit cancer removed - MUSCULOSKELETAL/RHEUMATOLOGICAL Hx Falls: Yes Hx Fractures: Yes (right heel fracture; 3 years ago) - GASTROINTESTINAL Other/Comment: colonoscopy in the past - PSYCHIATRIC Hx Emotional Abuse: No Hx Physical Abuse: No Hx Substance Use: No - SURGICAL HISTORY Hx Surgeries: Yes - ANESTHESIA Hx Anesthesia Reactions: No Hx Malignant Hyperthermia: No Meds Allergies/Adverse Reactions: Allergies Allergy/AdvReac Type Severity Reaction Status Date / Time pcn Allergy RASH Uncoded 03/29/17 06:26 Physical Exam - Constitutional Appears: No Acute Distress - Head Exam Head Exam: ATRAUMATIC, NORMOCEPHALIC - Eye Exam Eye Exam: EOMI, PERRL - ENT Exam ENT Exam: Mucous Membranes Moist - Neck Exam Neck exam: Positive for: Full Rom - Respiratory Exam Respiratory Exam: Clear to Auscultation Bilateral. absent: Rales, Rhonchi, Wheezes - Cardiovascular Exam Cardiovascular Exam: RRR. absent: Diastolic murmur, Gallop, Rubs, Systolic Murmur - GI/Abdominal Exam GI & Abdominal Exam: Soft. absent: Distended, Guarding, Organomegaly, Rebound, Tenderness - Extremities Exam Additional comments: Bandages are clean, dry and intact at incision site on left groin - Neurological Exam Neurological exam: Alert, CN II-XII Intact, Oriented x3 - Psychiatric Exam Psychiatric exam: Normal Affect, Normal Mood - Skin Skin Exam: Dry, Intact, Normal Color, Warm Results - Vital Signs Recent Vital Signs: Last Vital Signs Temp 97.4 F L 04/04/17 11:30 Pulse 56 L 04/04/17 11:30 Resp 18 04/04/17 11:30 BP 123/50 L 04/04/17 11:30 Pulse Ox 98 04/04/17 07:55 - Labs Result Diagrams: 04/04/17 08:19 04/04/17 08:19 Labs: Laboratory Results - last 24 hr 04/04/17 04/04/17 04/04/17 08:19 08:19 08:19 WBC 8.3 RBC 4.22 Hgb 12.3 Hct 37.8 MCV 89.6 MCH 29.1 MCHC 32.5 RDW 13.5 Plt Count 165 MPV 10.7 Gran % 72.8 H Lymph % (Auto) 17.8 L [place] % (Auto) 6.6 H Eos % (Auto) 2.4 Baso % (Auto) 0.4 Gran # 6.03 Lymph # 1.5 [place] # 0.6 Eos # 0.2 Baso # 0.03 PT 10.9 INR 1.01 APTT 28.3 Sodium 145 Potassium 4.6 Chloride 106 Carbon Dioxide 26 Anion Gap 18 BUN 36 H Creatinine 0.9 Est GFR ( Amer) > 60 Est GFR (Non-Af Amer) > 60 Random Glucose 177 H Calcium 9.7 Blood Type Blood Type Confirm Antibody Screen BBK History Checked 04/04/17 04/04/17 08:19 08:25 WBC RBC Hgb Hct MCV MCH MCHC RDW Plt Count MPV Gran % Lymph % (Auto) [place] % (Auto) Eos % (Auto) Baso % (Auto) Gran # Lymph # [place] # Eos # Baso # PT INR APTT Sodium Potassium Chloride Carbon Dioxide Anion Gap BUN Creatinine Est GFR ( Amer) Est GFR (Non-Af Amer) Random Glucose Calcium Blood Type O POSITIVE Blood Type Confirm O POSITIVE Antibody Screen Negative BBK History Checked No verified bt Assessment & Plan - Assessment and Plan (Free Text) Assessment: 81 yo F with PMHx of breast CA, ?Hx of PNA admitted status post PCI of RCA with stent placement. Plan: 1. S/P Cardiac catherization, Recent NSTEMI - PCI of RCA with stent placement today - Monitor incision site on left groin - Management per cardiology 2. CAD - Triple vessel disease, LVEF 30% - Cont ASA, Lipitor, Plavix 3. CHF - Hold Lasix - Hold Lopressor due to bradycardia 4. Diabetes mellitus Type 2 - Hold metformin, glyburide - Humalog ISS - Carb consistent diet 5. H/O GERD - Protonix PO BID 6. H/O HTN - Cont. Lisinopril GI/DVT PPx - Protonix - SCDs Pt seen and discussed in detail with Dr. Christian. Enrique Johnson PGY1 <Steven Christian U - Last Filed: 04/09/17 09:07> Results - Vital Signs Recent Vital Signs: Last Vital Signs Temp 97.7 F 04/05/17 06:00 Pulse 80 04/05/17 06:00 Resp 20 04/05/17 06:00 BP 150/70 04/05/17 09:49 Pulse Ox 98 04/05/17 06:00 - Labs Result Diagrams: 04/05/17 07:30 04/05/17 07:30 Attending/Attestation - Attestation I have personally seen and examined this patient.: Yes I have fully participated in the care of the patient.: Yes I have reviewed all pertinent clinical information: Yes
--- NOTE | 2017-04-04 14:34 | CARD ---
APPROVED REPORT EKG Measurement Heart [id number] <Conclusion> Sinus bradycardia with 1 APC with abberency Left axis deviation Left bundle branch block STTW changes
--- NOTE | 2017-04-04 15:32 | HP ---
DATE: 04/04/2017 The patient is readmitted today after being discharge on 04/02. The patient was seen in room 273, bed 3. CODE STATUS: Full code. LIVING WILL ADVANCE DIRECTIVE: None. HEIGHT: 5 feet 11 inches. ALLERGIES: PENICILLIN. BODY WEIGHT: 130. BMI: 18.1. CURRENT MEDICATIONS: As per the last ambulatory orders which are aspirin 81 daily, Lipitor 40 mg daily, Tessalon Perles 200 three times a day, Plavix 75 mg daily, Lasix 40 mg daily, Glyburide 10 mg daily, Zestril 10 mg daily, metformin 1000 mg twice a day, Toprol-XL 25 mg daily, Protonix 20 mg daily. MENSTRUAL HISTORY: Postmenopausal. SOCIAL HISTORY: Denies smoking, alcohol, communicable, transmissible disease. OCCUPATIONAL HISTORY: Disabled female. PAST MEDICAL HISTORY: Significant for borderline non-ST elevation myocardial infarction, history of ischemic dilated cardiomyopathy, history of multivessel coronary artery disease with status post angioplasty and stent placement of the left anterior descending and left circumflex, history of left ventricular ejection fraction of 30%, history of diffuse LV hypokinesis and dilated diffuse LV hypokinesis, history of 80% to 90% ostial right coronary artery stenosis with diffuse intimal irregularities of the right coronary artery, history of 80% to 90% stenosis of the proximal left anterior descending artery and 70% stenosis of the mid left circumflex and 70% stenosis of the distal left circumflex, history of leukocytosis with granulocytosis, systemic inflammatory response, history of lactic acidosis, history of transaminitis, history of hypomagnesemia, history of acute systolic congestive heart failure with elevated BNP, history of hypertriglyceridemia and hypercholesterolemia, history of systolic congestive heart failure with bilateral pleural effusion and atelectasis and pulmonary edema, history of bibasilar scarring and bilateral middle lobe and lingular scarring, history of cardiomegaly, history of hypertensive cardiovascular disease, history of nonspecific mediastinal lymphadenopathy, history of degenerative joint disease of the thoracic spine and hemangioma of T7-T12, history resolving systolic congestive heart failure, history left anterior hemiblock with left ventricular hypertrophy and inferolateral and anterolateral coronary ischemic changes, history of pulmonary arterial hypertension with right ventricular systolic pressure of 51 mmHg, history of severely impaired left ventricle systolic function with global left ventricular hypokinesis, history of moderately dilated left atrium and history of moderately thickened mitral valve with [id number] mitral regurgitation, history of moderate pulmonic regurgitation and incomplete left bundle-branch block, history of breast carcinoma status post chemotherapy and radiation therapy, history of dyslipidemia, history of type 2 non-insulin requiring diabetes mellitus, history of hypertension, history of cholecystectomy, history of right heel fracture 3 years ago, history of anxiety, history of right breast carcinoma with lumpectomy. PHYSICAL EXAMINATION: VITAL SIGNS: T-max 97.5, pulse 68, blood pressure 147/60, 123/50. Respiration is 18. O2 sat 98%. GENERAL: The patient was seen lying in the bed. HEAD: Normocephalic, atraumatic. HEENT: Shows pink conjunctivae. Anicteric sclerae. No oropharyngeal lesion. NECK: No neck rigidity. CHEST: Kyphosis. Positive right-sided breast surgery scar noted. CARDIOVASCULAR: S1, S2; regular rhythm. Positive systolic murmur at the right second intercostal space, left sternal border, left second intercostal space. ABDOMEN: Soft. Positive bowel sounds. GENITALIA: Female. Positive left groin Angio-Seal noted. EXTREMITIES: Pulses are positive. Lower extremity shows no pitting edema at present. MUSCULOSKELETAL: Shows a body mass index of 18. PSYCHIATRIC: Not applicable. VASCULAR: Palpable pulses. DIAGNOSTICS: CBC is within normal limits with granulocytes of 73. PT and PTT is normal. Chemistry is significant for BUN 36, glucose 177. EKG shows sinus bradycardia with left axis deviation and incomplete left bundle-branch block and PVC's The patient underwent angioplasty today with Dr. Leo Yarbrough. The patient underwent angioplasty and stent placement of the ostial RCA lesion. IMPRESSION: 1. Multivessel coronary artery disease. 2. Status post successful angioplasty and stent placement of the ostial right coronary artery 80% to 90% stenosis. 3. History of hypertension. 4. History of dyslipidemia. 5. History of Hypertriglyceridemia. 6. History non-insulin requiring diabetes mellitus. 7. History of recent non-ST elevation myocardial infarction. 8. History of recent acute systolic congestive heart failure with history of ischemic dilated cardiomyopathy. 9. Granulocytosis. 10. Hyperglycemia. 11. History of breast carcinoma status post chemotherapy and radiation therapy. 12. Sinus bradycardia with left axis deviation and left-bundle branch block. 1. Borderline non-ST elevation myocardial infarction. 2. Ischemic dilated cardiomyopathy. 3. Status post successful angioplasty and stent placement of the proximal left anterior descending stenosis with two lesions in the left circumflex artery. 4. Triple-vessel coronary artery disease with left ventricular ejection fraction of 30%. 5. Diffuse left ventricular hypokinesis and dilated and diffuse left ventricular hypokinesis. 6. 80-90% ostial right coronary artery stenosis with diffuse intimal irregularities of the right coronary artery. 7. 80-90% stenosis of the proximal left anterior descending artery. 8. 70% stenosis of the mid irregular 70% stenosis of the distal left circumflex artery. 9. Leukocytosis with granulocytosis. 11. Systemic inflammatory response syndrome. 11. Lactic acidosis. 12. Transaminitis. 13. Hypomagnesemia. 14. Acute systolic congestive heart failure with elevated BNP. 15. Hypertriglyceridemia and hypercholesterolemia. 16. Moderate bilateral pleural effusion, left more than the right with bibasilar atelectasis and pulmonary edema and systolic congestive heart failure. 17. Bibasilar scarring and bilateral middle lobe and lingular scarring. 18. Cardiomegaly. 19. Hypertensive cardiovascular disease. 20. Nonspecific mediastinal lymphadenopathy. 21. 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 22. Resolving systolic congestive heart failure. 23. 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 24. Left ventricular ejection fraction of 27%. 25. Pulmonary arterial hypertension with elevated right ventricular systolic pressure of 51 mmHg. 26. Global left ventricular hypokinesis with severely impaired left ventricle systolic function. 27. Moderately dilated left atrium and mildly dilated right atrium. 28. Mildly thickened aortic valve. 29. Moderately thickened mitral valve with [id number] mitral regurgitation. 30. Moderate pulmonic regurgitation. 31. Incomplete left bundle-branch block. 1. Status post successful angioplasty and stent placement of left anterior descending and circumflex artery. 2. Mild borderline non-ST elevation myocardial infarction. 3. Acute pulmonary edema. 4. Hypertension. 5. Transient hypoxemia. 6. Leukocytosis with granulocytosis. 7. Hypoxemia. 8. Lactic acidosis. 9. Non-insulin requiring diabetes mellitus, well-controlled with hemoglobin A1c of 6.4 and fructosamine of 240. 10. Acute systolic congestive heart failure and pulmonary edema with elevated BNP. 11. Transient hyperglycemia. 12. Hypertriglyceridemia, hypercholesterolemia, and elevated LDL and decreased HDL. 13. Left axis deviation. 14. Age-indeterminate anterolateral infarct. 15. Inferolateral coronary ischemic changes. 16. Left ventricular ejection fraction of 28%. 17. Pulmonary arterial hypertension with right ventricular systolic pressure of 51 mmHg. 18. Concentric left ventricle hypertrophy with severely impaired left ventricular systolic function with global left ventricular hypokinesis and grade I abnormal relaxation pattern. 19. Moderately dilated left atrium and mildly dilated right atrium. 20. Mildly thickened aortic valve. 21. Moderately thickened mitral valve. 22. Jktewfer-vz-sarxxw mitral regurgitation. 23. Moderate pulmonary arterial hypertension with right ventricular systolic pressure of 51 mmHg. 24. Moderate pulmonic valvular regurgitation. 25. Incomplete left bundle-branch block. 26. Left anterior hemiblock. 27. Age-indeterminate anterior infarct. 1. Acute systolic pulmonary edema and congestive heart failure. 2. Non-ST elevation myocardial infarction. 3. Lactic acidosis. 4. Hypertension. 5. Transient hypoxemia. 6. Leukocytosis with granulocytosis. 7. Hypoxemia. 8. History of non-insulin requiring diabetes mellitus, history of hypertension, history of dyslipidemia and history of right breast carcinoma status post chemotherapy and radiation therapy. 9. History of diabetes mellitus, well controlled with hemoglobin A1c of 6.4. 10. Hyperphosphatemia. 11. Hypomagnesemia. 12. Acute systolic congestive heart failure with elevated brain natriuretic peptide. 13. Hypercholesterolemia with elevated LDL and decreased HDL. 14. Pulmonary arterial hypertension. 15. Moderate bilateral pleural effusion, right more than the left with bibasilar left atelectasis. 16. Pulmonary demand congestive heart failure. 17. Bibasilar chronic scarring versus atelectasis. 18. Cardiomegaly with left ventricular hypertrophy. 19. Mediastinal nonspecific lymphadenopathy. 20. Degenerative joints and spondylosis of the thoracic spine. 21. Thoracic spine hemangioma. 22. Dilated cardiomyopathy with left ventricular ejection fraction of 28%. 23. Pulmonary arterial with right ventricular systolic pressure of 51 mmHg. 24. Concentric left ventricle hypertrophy and severely impaired left ventricular systolic function with global left ventricular hypokinesis. 25. Moderately dilated left atrium. 26. Mildly thickened aortic valve. 27. Moderate to severe mitral regurgitation with moderately thickened mitral valve. 28. Moderate pulmonary arterial hypertension. 29. Moderate pulmonic regurgitation. 30. Pulmonary vascular congestion with bilateral lower lobes alveolar infiltrates and bilateral pleural effusion, right more than the left and bibasilar atelectasis with cardiomegaly. 31. Left axis deviation with age indeterminate inferior infarct and inferolateral coronary ischemia. 32. Questionable incomplete left bundle-branch block. 33. Incomplete left bundle-branch block. 34. Systemic inflammatory response syndrome, probably secondary to congestive heart failure. 35. Acute systolic congestive heart failure. 36. Non-ST elevation myocardial infarction. 37. Diabetes mellitus. 38. Hypertriglyceridemia, hypercholesteremia with elevated LDL and decreased HDL. 39. Non-insulin requiring diabetes mellitus, well controlled with hemoglobin A1c of 6.4 and fructosamine of 240. 1. Shortness of breath, etiology undetermined. 2. Possible congestive heart failure, either systolic versus diastolic, unclear at this time. 3. Leukocytosis, etiology undetermined. 4. Cardiomegaly. 5. Sinus tachycardia. 6. Questionable systemic inflammatory response syndrome. 7. Questionable community-acquired pneumonia. 8. Congestive heart failure. 9. History of breast carcinoma. PLAN: At this time, the patient is admitted post angioplasty and cardiac catheterization in room 273, bed 3. Currently, the patient has received an aspirin 81 mg daily, Humalog medium dose a.c and bedtime, Lipitor 40 daily, Plavix 75 daily, IV fluid 0.9 normal saline at 100 mL. Repeat EKG ordered. The patient is on post angioplasty bedrest. At present, the patient's beta-roseline will be considered to decreased upon discharge because of bradycardia. The patient will be resumed on home medications tomorrow once the patient is cleared for discharge. The patient will followed up closely with cardiology. DICTATED AND ELECTRONICALLY SIGNED NOT READ. Steven Christian MD [facility]
[2017-04-04] MEDS: Insulin Lispro (humaLOG) MEDIUM Coverage SC SCH ×2 (18:50→21:18)
[2017-04-04] MEDS: Pantoprazole 20 mg EC Tab PO SCH (18:51)
[2017-04-05 00:03] VITALS: RESP 20
[2017-04-05] MEDS: Pantoprazole 20 mg EC Tab PO SCH (05:21)
[2017-04-05 06:04] VITALS: PULSE 80; TEMP 97.7; O2SAT 98
[2017-04-05 07:41] LABS: BASO # 0.02 K/mm3 (0.0-2.0); BASO % 0.3 % (0.0-3.0); EOS # 0.2 (0.0-0.7); EOS % 1.9 % (1.5-5.0); GRAN # 5.83 (1.4-6.5); HEMATOCRIT 33.5 % (36.0-48.0); LYMPH # 1.3 (1.2-3.4); LYMPH % 16.9 % (22.0-35.0); MEAN CELL VOLUME 88.9 fl (80.0-105.0); MEAN CORPUSCULAR HEMOGLOBIN 28.9 pg (25.0-35.0); MEAN CORPUSCULAR HGB CONC 32.5 g/dl (31.0-37.0); MEAN PLATELET VOLUME 11.1 fl (7.0-11.0); MONO # 0.5 (0.1-0.6); MONO % 6.9 % (1.0-6.0); RED CELL DISTRIBUTION WIDTH 13.5 % (11.5-14.5); WHITE BLOOD COUNT 7.9 10^3/ul (4.5-11.0)
[2017-04-05 07:46] LABS: BLOOD UREA NITROGEN 25 mg/dL (7-21); CALCIUM 9.4 mg/dL (8.4-10.5); CARBON DIOXIDE 26 mmol/L (21-33); CHLORIDE 105 mmol/L (95-110); GFR AFRICAN-AMERICAN > 60; GLUCOSE,RANDOM 164 mg/dL (70-110); POTASSIUM 4.2 mmol/L (3.6-5.0); SODIUM 142 mmol/L (132-148)
[2017-04-05] MEDS: Insulin Lispro (humaLOG) MEDIUM Coverage SC SCH (08:30)
[2017-04-05 09:53] VITALS: BP 150/70
--- NOTE | 2017-04-05 11:05 | PN ---
DATE: 04/05/2017 CARDIOLOGY FOLLOWUP SUBJECTIVE: The patient is asymptomatic, is ambulating without symptoms. PHYSICAL EXAMINATION VITAL SIGNS: Blood pressure 152/80, heart rate is in the 80s. NECK: Negative JVD. HEART: S1, S2. LUNGS: Without rales. EXTREMITIES: Without edema. The left groin site is stable. LABORATORY DATA: Hemoglobin is 10.9, BUN and creatinine are unremarkable, and glucose is 164. IMPRESSION: 1. Status post triple vessel percutaneous transluminal coronary angioplasty and stent. 2. History of ischemic dilated cardiomyopathy. 3. Diabetes mellitus. 4. History of non-ST segment myocardial infarction. 5. Resolution of congestive heart failure. 6. Hypertension. PLAN: Given these findings, the patient's cardiac status is stable for discharge. Follow up and instructions have been given to the patient, the patient can be discharged today. Leo Yarbrough MD
--- NOTE | 2017-04-05 16:53 | CP.PCM.DIS ---
<KENTRELL TERESA - Last Filed: 04/05/17 16:50> Provider - Provider Date of Admission: 04/04/17 Attending physician: Steven Christian MD Consults: Cardio: Zenon Time Spent in preparation of Discharge (in minutes): 45 Hospital Course - Lab Results Lab Results: Most Recent Lab Values WBC 7.9 10^3/ul (4.5-11.0) 04/05/17 07:30 RBC 3.77 10^6/uL (3.5-6.1) 04/05/17 07:30 Hgb 10.9 g/dL (12.0-16.0) L 04/05/17 07:30 Hct 33.5 % (36.0-48.0) L 04/05/17 07:30 MCV 88.9 fl (80.0-105.0) 04/05/17 07:30 MCH 28.9 pg (25.0-35.0) 04/05/17 07:30 MCHC 32.5 g/dl (31.0-37.0) 04/05/17 07:30 RDW 13.5 % (11.5-14.5) 04/05/17 07:30 Plt Count 145 10^3/uL (120.0-450.0) 04/05/17 07:30 MPV 11.1 fl (7.0-11.0) H 04/05/17 07:30 Gran % 74.0 % (50.0-68.0) H 04/05/17 07:30 Lymph % (Auto) 16.9 % (22.0-35.0) L 04/05/17 07:30 [place] % (Auto) 6.9 % (1.0-6.0) H 04/05/17 07:30 Eos % (Auto) 1.9 % (1.5-5.0) 04/05/17 07:30 Baso % (Auto) 0.3 % (0.0-3.0) 04/05/17 07:30 Gran # 5.83 (1.4-6.5) 04/05/17 07:30 Lymph # 1.3 (1.2-3.4) 04/05/17 07:30 [place] # 0.5 (0.1-0.6) 04/05/17 07:30 Eos # 0.2 (0.0-0.7) 04/05/17 07:30 Baso # 0.02 K/mm3 (0.0-2.0) 04/05/17 07:30 PT 10.9 Seconds (9.9-11.8) 04/04/17 08:19 INR 1.01 (0.93-1.08) 04/04/17 08:19 APTT 28.3 Seconds (23.7-30.8) 04/04/17 08:19 Sodium 142 mmol/L (132-148) 04/05/17 07:30 Potassium 4.2 mmol/L (3.6-5.0) 04/05/17 07:30 Chloride 105 mmol/L (95-110) 04/05/17 07:30 Carbon Dioxide 26 mmol/L (21-33) 04/05/17 07:30 Anion Gap 15 (10-20) 04/05/17 07:30 BUN 25 mg/dL (7-21) H 04/05/17 07:30 Creatinine 1.0 mg/dL (0.5-1.4) 04/05/17 07:30 Est GFR ( Amer) > 60 04/05/17 07:30 Est GFR (Non-Af Amer) 53 04/05/17 07:30 POC Glucose (mg/dL) 162 mg/dL (65-110) H 04/05/17 11:28 Random Glucose 164 mg/dL (70-110) H 04/05/17 07:30 Calcium 9.4 mg/dL (8.4-10.5) 04/05/17 07:30 Blood Type O POSITIVE 04/04/17 08:19 Blood Type Confirm O POSITIVE 04/04/17 08:25 Antibody Screen Negative 04/04/17 08:19 BBK History Checked No verified bt 04/04/17 08:19 - Hospital Course Hospital Course: 81yo F with PMHx of breast CA, ?Hx of PNA returns to [facility] for scheduled repeat cardiac catherization for subsequent angioplasty. Pt was admitted on 03/29/17 for evaluation of worsening SOB and chest pain. Workup revealed borderline NSTEMI and ischemic dilated cardiomyopathy. Pt underwent cardiac catherization that showed tripple vessel coronary artery disease with LVEF of 30%. At that time, pt had a successful angioplasty and stent placement of the proximal LAD. Pt was discharged on 04/01/17 after being cleared by cardiology and instructed to follow up with Dr. Christian out-patient. Pt underwent precutaneous cardiac intervention of the RCA on this admission. Patient was seen and examined status post PCI. Pt tolerated procedure well. Pt denies any postoperative complications. Today, pt was seen by cardiology, who determined that patient is stable to be discharged home. Pt was seen and examined at bedside. Pt denies any acute overnight events. Pt is able to ambulate without difficulty. Pt denies CP, SOB, n/v/d, fever, chills, abdominal pain. Pt is advised to follow up as outpatient and restart home medications, except for metformin, which will be started in 1 day. Discharge Exam - Head Exam Head Exam: ATRAUMATIC, NORMOCEPHALIC - Eye Exam Eye Exam: EOMI, PERRL - ENT Exam ENT Exam: Mucous Membranes Moist - Neck Exam Neck exam: Full Rom - Respiratory Exam Respiratory Exam: Clear to PA & Lateral. absent: Rales, Rhonchi, Wheezes - Cardiovascular Exam Cardiovascular Exam: RRR. absent: Gallop, Rubs, Systolic Murmur - GI/Abdominal Exam GI & Abdominal Exam: Soft. absent: Distended, Guarding, Rebound, Tenderness - Extremities Exam Extremities exam: normal inspection Additional comments: Catheriziation incision site bandage is clean, dry and intact - Neurological Exam Neurological exam: Alert, Oriented x3 - Psychiatric Exam Psychiatric exam: Normal Affect, Normal Mood - Skin Skin Exam: Dry, Intact, Normal Color, Warm Discharge Plan - Follow Up Plan Condition: GOOD Disposition: HOME/ ROUTINE Instructions: Coronary Artery Disease (DC), Heart Healthy Diet (DC), Basic Carbohydrate Counting (DC), Coronary Intravascular Stent Placement (DC), Coronary Artery Disease in Women (DC) Additional Instructions: 1. continue home medications as directed. 2. Wait until tomorrow to restart Metformin 3. heart healthy, carb consistent diet. 4. follow up with Dr. Christian in one week with all medications. 5. follow up with Dr. Yarbrough in 3-4 weeks with all medications. 6. if symptoms persist return to your nearest emergency room. 7. see post cath instructions included in the packet for further instructions. Referrals: Steven Christian MD [Staff Provider] - 1 Week (DISCHARGE HOME AFTER CLEARED BY DISCHARGE MEDS PER AMBULATORY ORDERS FOLLOW UP WITHIN 1 WEEK WITH ALL MEDS COPY OF DIET TO PATIENT UPON DISCHARGE ) Leo Yarbrough MD [Staff Provider] - <Steven Christian - Last Filed: 04/09/17 09:08> Provider - Provider Attending physician: Steven Christian MD Hospital Course - Lab Results Lab Results: Most Recent Lab Values WBC 7.9 10^3/ul (4.5-11.0) 04/05/17 07:30 RBC 3.77 10^6/uL (3.5-6.1) 04/05/17 07:30 Hgb 10.9 g/dL (12.0-16.0) L 04/05/17 07:30 Hct 33.5 % (36.0-48.0) L 04/05/17 07:30 MCV 88.9 fl (80.0-105.0) 04/05/17 07:30 MCH 28.9 pg (25.0-35.0) 04/05/17 07:30 MCHC 32.5 g/dl (31.0-37.0) 04/05/17 07:30 RDW 13.5 % (11.5-14.5) 04/05/17 07:30 Plt Count 145 10^3/uL (120.0-450.0) 04/05/17 07:30 MPV 11.1 fl (7.0-11.0) H 04/05/17 07:30 Gran % 74.0 % (50.0-68.0) H 04/05/17 07:30 Lymph % (Auto) 16.9 % (22.0-35.0) L 04/05/17 07:30 [place] % (Auto) 6.9 % (1.0-6.0) H 04/05/17 07:30 Eos % (Auto) 1.9 % (1.5-5.0) 04/05/17 07:30 Baso % (Auto) 0.3 % (0.0-3.0) 04/05/17 07:30 Gran # 5.83 (1.4-6.5) 04/05/17 07:30 Lymph # 1.3 (1.2-3.4) 04/05/17 07:30 [place] # 0.5 (0.1-0.6) 04/05/17 07:30 Eos # 0.2 (0.0-0.7) 04/05/17 07:30 Baso # 0.02 K/mm3 (0.0-2.0) 04/05/17 07:30 PT 10.9 Seconds (9.9-11.8) 04/04/17 08:19 INR 1.01 (0.93-1.08) 04/04/17 08:19 APTT 28.3 Seconds (23.7-30.8) 04/04/17 08:19 Sodium 142 mmol/L (132-148) 04/05/17 07:30 Potassium 4.2 mmol/L (3.6-5.0) 04/05/17 07:30 Chloride 105 mmol/L (95-110) 04/05/17 07:30 Carbon Dioxide 26 mmol/L (21-33) 04/05/17 07:30 Anion Gap 15 (10-20) 04/05/17 07:30 BUN 25 mg/dL (7-21) H 04/05/17 07:30 Creatinine 1.0 mg/dL (0.5-1.4) 04/05/17 07:30 Est GFR ( Amer) > 60 04/05/17 07:30 Est GFR (Non-Af Amer) 53 04/05/17 07:30 POC Glucose (mg/dL) 162 mg/dL (65-110) H 04/05/17 11:28 Random Glucose 164 mg/dL (70-110) H 04/05/17 07:30 Calcium 9.4 mg/dL (8.4-10.5) 04/05/17 07:30 Blood Type O POSITIVE 04/04/17 08:19 Blood Type Confirm O POSITIVE 04/04/17 08:25 Antibody Screen Negative 04/04/17 08:19 BBK History Checked No verified bt 04/04/17 08:19
--- NOTE | 2017-04-06 03:15 | DS ---
The patient was seen in room #273, bed 3, ambulating on the floor. Overnight nurse's notes were reviewed. No adverse event documented. The patient slept well. PHYSICAL EXAMINATION: VITAL SIGNS: T-max afebrile. Telemetry shows sinus rhythm. Blood pressure , respiration 20, and O2 sat 98% on room air. HEAD: Normocephalic, atraumatic. HEENT: Shows pink conjunctivae. Anicteric sclerae. No oropharyngeal lesion. NECK: No neck rigidity. CHEST: Kyphosis. LUNGS: Show no rales, crackles. CARDIOVASCULAR: S1, S2, regular rhythm. Positive systolic murmur, left sternal border, right second intercostal space, left second intercostal space. ABDOMEN: Soft. Positive bowel sounds. Left groin is intact without any hematoma. GENITALIA: Female. RECTAL: Deferred. EXTREMITIES: Shows no pitting edema. No calf tenderness. No Homans' sign. MUSCULOSKELETAL: Shows a body mass index of 19.4. NEUROLOGIC: Without any gross deficit. Motor strength, the patient is ambulating on the floor without any systems. DIAGNOSTICS: 04/05/2017, WBC 7.9, hemoglobin and hematocrit 11 and 33.5, platelet 145. Granulocytes 74%. Chemistries; sodium 142, potassium 4.2, chloride 105, CO2 of 26, anion gap 15, BUN 25, creatinine 1.0, GFR greater than 60. Glucose 165, 152, 186, 177. The patient's cardiac cath report not available at present. EKG shows left axis deviation, left bundle branch block. FINAL IMPRESSION AND PLAN AND DISCHARGE DIAGNOSES: 1. Multivessel coronary artery disease. 2. Status post angioplasty and drug-eluting stent placement of the ostial right coronary artery, 80% to 90% stenosis. 3. History of hypertension. 4. Hypertriglyceridemia. 5. History of recent non-ST elevation myocardial infarction. 6. History of acute systolic congestive heart failure with ischemic dilated cardiomyopathy. 7. History of right breast carcinoma. 8. History of dyslipidemia. 9. History of non-insulin requiring diabetes mellitus. 10. History of congestive heart failure. 11. Mild normocytic anemia with granulocytosis. 12. Mild prerenal kidney injury. 13. Hyperglycemia. 1. Multivessel coronary artery disease. 2. Status post successful angioplasty and stent placement of the ostial right coronary artery 80% to 90% stenosis. 3. History of hypertension. 4. History of dyslipidemia. 5. History of Hypertriglyceridemia. 6. History non-insulin requiring diabetes mellitus. 7. History of recent non-ST elevation myocardial infarction. 8. History of recent acute systolic congestive heart failure with history of ischemic dilated cardiomyopathy. 9. Granulocytosis. 10. Hyperglycemia. 11. History of breast carcinoma status post chemotherapy and radiation therapy. 12. Sinus bradycardia with left axis deviation and left-bundle branch block. 1. Borderline non-ST elevation myocardial infarction. 2. Ischemic dilated cardiomyopathy. 3. Status post successful angioplasty and stent placement of the proximal left anterior descending stenosis with two lesions in the left circumflex artery. 4. Triple-vessel coronary artery disease with left ventricular ejection fraction of 30%. 5. Diffuse left ventricular hypokinesis and dilated and diffuse left ventricular hypokinesis. 6. 80-90% ostial right coronary artery stenosis with diffuse intimal irregularities of the right coronary artery. 7. 80-90% stenosis of the proximal left anterior descending artery. 8. 70% stenosis of the mid irregular 70% stenosis of the distal left circumflex artery. 9. Leukocytosis with granulocytosis. 11. Systemic inflammatory response syndrome. 11. Lactic acidosis. 12. Transaminitis. 13. Hypomagnesemia. 14. Acute systolic congestive heart failure with elevated BNP. 15. Hypertriglyceridemia and hypercholesterolemia. 16. Moderate bilateral pleural effusion, left more than the right with bibasilar atelectasis and pulmonary edema and systolic congestive heart failure. 17. Bibasilar scarring and bilateral middle lobe and lingular scarring. 18. Cardiomegaly. 19. Hypertensive cardiovascular disease. 20. Nonspecific mediastinal lymphadenopathy. 21. 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 22. Resolving systolic congestive heart failure. 23. 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 24. Left ventricular ejection fraction of 27%. 25. Pulmonary arterial hypertension with elevated right ventricular systolic pressure of 51 mmHg. 26. Global left ventricular hypokinesis with severely impaired left ventricle systolic function. 27. Moderately dilated left atrium and mildly dilated right atrium. 28. Mildly thickened aortic valve. 29. Moderately thickened mitral valve with [id number] mitral regurgitation. 30. Moderate pulmonic regurgitation. 31. Incomplete left bundle-branch block. 1. Status post successful angioplasty and stent placement of left anterior descending and circumflex artery. 2. Mild borderline non-ST elevation myocardial infarction. 3. Acute pulmonary edema. 4. Hypertension. 5. Transient hypoxemia. 6. Leukocytosis with granulocytosis. 7. Hypoxemia. 8. Lactic acidosis. 9. Non-insulin requiring diabetes mellitus, well-controlled with hemoglobin A1c of 6.4 and fructosamine of 240. 10. Acute systolic congestive heart failure and pulmonary edema with elevated BNP. 11. Transient hyperglycemia. 12. Hypertriglyceridemia, hypercholesterolemia, and elevated LDL and decreased HDL. 13. Left axis deviation. 14. Age-indeterminate anterolateral infarct. 15. Inferolateral coronary ischemic changes. 16. Left ventricular ejection fraction of 28%. 17. Pulmonary arterial hypertension with right ventricular systolic pressure of 51 mmHg. 18. Concentric left ventricle hypertrophy with severely impaired left ventricular systolic function with global left ventricular hypokinesis and grade I abnormal relaxation pattern. 19. Moderately dilated left atrium and mildly dilated right atrium. 20. Mildly thickened aortic valve. 21. Moderately thickened mitral valve. 22. Gecjkgle-[id number]-eehwnk mitral regurgitation. 23. Moderate pulmonary arterial hypertension with right ventricular systolic pressure of 51 mmHg. 24. Moderate pulmonic valvular regurgitation. 25. Incomplete left bundle-branch block. 26. Left anterior hemiblock. 27. Age-indeterminate anterior infarct. 1. Acute systolic pulmonary edema and congestive heart failure. 2. Non-ST elevation myocardial infarction. 3. Lactic acidosis. 4. Hypertension. 5. Transient hypoxemia. 6. Leukocytosis with granulocytosis. 7. Hypoxemia. 8. History of non-insulin requiring diabetes mellitus, history of hypertension, history of dyslipidemia and history of right breast carcinoma status post chemotherapy and radiation therapy. 9. History of diabetes mellitus, well controlled with hemoglobin A1c of 6.4. 10. Hyperphosphatemia. 11. Hypomagnesemia. 12. Acute systolic congestive heart failure with elevated brain natriuretic peptide. 13. Hypercholesterolemia with elevated LDL and decreased HDL. 14. Pulmonary arterial hypertension. 15. Moderate bilateral pleural effusion, right more than the left with bibasilar left atelectasis. 16. Pulmonary demand congestive heart failure. 17. Bibasilar chronic scarring versus atelectasis. 18. Cardiomegaly with left ventricular hypertrophy. 19. Mediastinal nonspecific lymphadenopathy. 20. Degenerative joints and spondylosis of the thoracic spine. 21. Thoracic spine hemangioma. 22. Dilated cardiomyopathy with left ventricular ejection fraction of 28%. 23. Pulmonary arterial with right ventricular systolic pressure of 51 mmHg. 24. Concentric left ventricle hypertrophy and severely impaired left ventricular systolic function with global left ventricular hypokinesis. 25. Moderately dilated left atrium. 26. Mildly thickened aortic valve. 27. Moderate to severe mitral regurgitation with moderately thickened mitral valve. 28. Moderate pulmonary arterial hypertension. 29. Moderate pulmonic regurgitation. 30. Pulmonary vascular congestion with bilateral lower lobes alveolar infiltrates and bilateral pleural effusion, right more than the left and bibasilar atelectasis with cardiomegaly. 31. Left axis deviation with age indeterminate inferior infarct and inferolateral coronary ischemia. 32. Questionable incomplete left bundle-branch block. 33. Incomplete left bundle-branch block. 34. Systemic inflammatory response syndrome, probably secondary to congestive heart failure. 35. Acute systolic congestive heart failure. 36. Non-ST elevation myocardial infarction. 37. Diabetes mellitus. 38. Hypertriglyceridemia, hypercholesteremia with elevated LDL and decreased HDL. 39. Non-insulin requiring diabetes mellitus, well controlled with hemoglobin A1c of 6.4 and fructosamine of 240. 1. Shortness of breath, etiology undetermined. 2. Possible congestive heart failure, either systolic versus diastolic, unclear at this time. 3. Leukocytosis, etiology undetermined. 4. Cardiomegaly. 5. Sinus tachycardia. 6. Questionable systemic inflammatory response syndrome. 7. Questionable community-acquired pneumonia. 8. Congestive heart failure. 9. History of breast carcinoma. PLAN: At this time, we are awaiting for cardiology clearance for this patient's discharge. If the patient is cleared for discharge, the patient will be discharged home with following discharge medications as follows; 1. Aspirin 81 mg daily. 2. Lipitor 40 mg daily. 3. Tessalon Perles 200 mg 3 times a day. 4. Plavix 75 mg daily. 5. Lasix 40 mg p.o. daily. 6. Glyburide 10 mg daily. 7. Restoril 10 mg daily. 8. Metformin 1000 mg twice a day, to be resumed tomorrow. 9. Toprol-XL 25 mg daily. 10. Protonix 40 mg daily. The patient to be discharged home after cleared by Dr. Yarbrough. The patient to be followed up in the office in one week. The patient will be given a copy of the diet upon discharge. The patient was advised as limited activity. No alcohol. No smoking. The patient driving will be permitted if cleared by Dr. Yarbrough. Time spent in the entire discharge process, management and discussion, more than 45 minutes. Dictated and electronically signed, not read. Steven Christian MD AMINA
--- NOTE | 2017-05-03 08:24 | CARDCATH ---
PROCEDURE DATE: 04/04/2017 HISTORY: The patient is an 81-year-old woman who presented with unstable angina and was found to have an ischemic dilated cardiomyopathy. She underwent successful PTCA and stent of an LAD and circumflex artery last week, was brought back here for PTCA and stent of an ostial circumflex lesion. The left femoral artery was cannulated with 6-Divehi sheath. There were no complications. The findings on catheterization revealed a patent stent in the LAD as well as a patent stent in the circumflex artery. In addition, there is a 90% ostial stenoses of the RCA which was a large dominant vessel. The patient was put on Angiomax. On the fluoroscopic guide, the guiding catheter was placed in the ostium of the RCA and 0.014 ATW wire was used to cross the ostial critical lesion and placed into the mid RCA. The patient was predilated with a 2.5 balloon. A 3.5 x 9 mm drug-eluting stent was placed and deployed in the ostium of the RCA. Repeat coronary angiography after balloon removal revealed an excellent result with no residual stenosis and JOHNATHON III flow. Angio-Seal was used to close the femoral artery site. The patient tolerated the procedure well. In summary, the procedure was successful for a stage PTCA and stent of an ostial RCA lesion. Cardiac catheterization reveals patent stents in the LAD and circumflex artery which was placed last week. Given these findings, the patient has undergone successful PTCA and stent of triple vessel CAD with drug-eluting stents, show a need to remain on dual antiplatelet therapy for at least a year and undergo a strict cardiac risk reduction program. We will re-evaluate her LV function in a couple months to see whether her LV function is improved. Leo Yarbrough MD
== END 2017-04-05 12:04 | disposition home or self-care (01) ==
LOC: CATH 07:36 → 2RSO 10:19 → CATH 04-05 12:04
PROVIDERS: ATTEND Internal Medicine
DX: I25.110 Atherosclerotic heart disease of native coronary artery with unstable angina pectoris (principal); I21.4 Non-ST elevation (NSTEMI) myocardial infarction; I44.7 Left bundle-branch block, unspecified; I42.0 Dilated cardiomyopathy; Z85.3 Personal history of malignant neoplasm of breast; Z95.5 Presence of coronary angioplasty implant and graft; Z87.01 Personal history of pneumonia (recurrent); Z88.0 Allergy status to penicillin; K21.9 Gastro-esophageal reflux disease without esophagitis; I10 Essential (primary) hypertension; E78.1 Pure hyperglyceridemia; I50.20 Unspecified systolic (congestive) heart failure; I25.5 Ischemic cardiomyopathy; E78.5 Hyperlipidemia, unspecified; D64.9 Anemia, unspecified; E11.65 Type 2 diabetes mellitus with hyperglycemia; D18.09 Hemangioma of other sites; E78.00 Pure hypercholesterolemia, unspecified; E83.39 Other disorders of phosphorus metabolism; E83.42 Hypomagnesemia; E87.2 Acidosis; F41.9 Anxiety disorder, unspecified; I11.0 Hypertensive heart disease with heart failure; I25.2 Old myocardial infarction; I34.0 Nonrheumatic mitral (valve) insufficiency; I50.21 Acute systolic (congestive) heart failure; R09.02 Hypoxemia; Z79.82 Long term (current) use of aspirin; R65.10 Systemic inflammatory response syndrome (SIRS) of non-infectious origin without acute organ dysfunction; Z79.02 Long term (current) use of antithrombotics/antiplatelets; Z79.4 Long term (current) use of insulin; Z79.899 Other long term (current) drug therapy; Z92.21 Personal history of antineoplastic chemotherapy
CPT/HCPCS: 36415 ×2; 80048 ×2; 82948 ×2; 85025 ×2; 85610; 85730; 86850; 86900; 93005; 93454; 99152; 99153; C1725; C1769 ×2; C1874; C1887; C2629; C9600; J0583; J1644; J2250; J3010; J7040 ×2; Q9967

== ENCOUNTER 2018-06-09 06:22 | Day surgery (SDC) | payer MEDICARE, OTHER ==
[2018-06-05 10:44] VITALS: BMI 28.3
[2018-06-09] MEDS ORDERED: Nitroglycerin 50mg in D5W 50 MG/250 ML BOTTLE IV ONE (06:47)
[2018-06-09] MEDS ORDERED: Lidocaine 2% Inj (20ml) ONE (06:47)
[2018-06-09] MEDS ORDERED: Iodixanol 320 MG/ML 200 ML BOTTLE IV ONE (06:47)
[2018-06-09] MEDS ORDERED: Iohexol 350mgl/ml 50 ML ONE (06:47)
[2018-06-09] MEDS ORDERED: Iodixanol 320 MG/ML 100 ML BOTTLE IV ONE (06:47)
[2018-06-09] MEDS ORDERED: Phenylephrine 10 mg/ml Inj ONE (06:50)
[2018-06-09 07:13] LABS: BLOOD UREA NITROGEN 23 mg/dL (7-21); CALCIUM 9.6 mg/dL (8.4-10.5); GFR NON-AFRICAN AMERICAN > 60; HDL CHOLESTEROL 36 mg/dL (29-60); INR 1.05; PARTIAL THROMBOPLASTIN TIME 27.7 Seconds (25.1-36.5); PROTHROMBIN TIME 12.1 SECONDS (9.4-12.5)
[2018-06-09 07:14] LABS: BASO # 0.02 K/mm3 (0.0-2.0); BASO % 0.3 % (0.0-3.0); EOS # 0.2 (0.0-0.7); EOS % 2.4 % (1.5-5.0); GRAN # 4.73 (1.4-6.5); HEMOGLOBIN 11.9 g/dL (12.0-16.0); LYMPH # 1.6 (1.2-3.4); LYMPH % 23.5 % (22.0-35.0); MEAN CELL VOLUME 89.3 fl (80.0-105.0); MEAN CORPUSCULAR HEMOGLOBIN 29.8 pg (25.0-35.0); MEAN CORPUSCULAR HGB CONC 33.3 g/dl (31.0-37.0); MEAN PLATELET VOLUME 10.5 fl (7.0-11.0); MONO # 0.4 (0.1-0.6); MONO % 5.8 % (1.0-6.0); RED CELL DISTRIBUTION WIDTH 14.3 % (11.5-14.5)
[2018-06-09 07:24] LABS: LDL CHOLESTEROL 75 mg/dL (0-129)
[2018-06-09] MEDS ORDERED: Midazolam 2 MG/2 ML VIAL ONE ×2 (07:57→08:02)
[2018-06-09] MEDS ORDERED: Eptifibatide 20 mg/10mL Inj IVP ONE (08:30)
[2018-06-09] MEDS ORDERED: Sodium Chloride 0.9% 1,000 ML IV SCH (09:00)
[2018-06-09] MEDS: Metoprolol Succinate 25 mg XL Tab PO SCH (09:56)
[2018-06-09] MEDS: Insulin Lispro (humaLOG) MEDIUM Coverage SC SCH ×2 (13:41→17:25)
[2018-06-09] MEDS: POLYETHYLENE GLYCOL 3350 17 GM/Dose PACKET PO SCH ×2 (14:33→17:25)
--- NOTE | 2018-06-09 15:45 | HP ---
DATE OF EXAM: 06/09/2018 HISTORY OF PRESENT ILLNESS: The patient is an 82-year-old female admitted from the cardiac production laborer after undergoing angioplasty and stent placement. The patient recently had abnormal stress test, which showed persistent ischemic changes with decreased perfusion involving the anteroseptal, apical inferior and distal inferolateral limon. With ejection fraction of 49 percent and inferolateral hypokinesis of the left ventricle, the patient was consulted with Cardiology and the patient was scheduled for cardiac catheterization. Today, the patient underwent cardiac catheterization and angioplasty and stent placement. The patient is seen in the cardiac production laborer holding area. CODE STATUS: Full code. LIVING WILL ADVANCE DIRECTIVE: None. HEIGHT: 5 feet 1 inch. WEIGHT: 150. BODY MASS INDEX: 28.3. HOME MEDICATIONS: 1. Lasix 40 mg once or twice a day. 2. Plavix 75 mg daily. 3. Lipitor 40 mg daily. 4. Ecotrin 81 mg daily. 5. Toprol XL 25 mg daily. 6. Metformin 1000 mg twice a day. 7. Zestril 10 mg daily. 8. Amaryl 2 mg twice a day. 9. The patient is also on vitamin D. SOCIAL HISTORY: Denies substance abuse. Denies alcohol. Denies smoking. FAMILY HISTORY: Positive for diabetes and hypertension. ALLERGIES: TO PENICILLIN IN THE PREVIOUS ADMISSION, BUT THIS ADMISSION ALLERGIES ARE LISTED NONE. MENSTRUAL HISTORY: Postmenopausal. OCCUPATIONAL HISTORY: Disabled female. PAST MEDICAL AND SURGICAL HISTORY: History of non-ST elevation myocardial infarction. History of multivessel coronary artery disease with angioplasty and stent placement of the left anterior descending, left circumflex artery. History of ischemic dilated cardiomyopathy with ejection fraction of 30 percent and history of left ventricular hypokinesis. History of 80 to 90 percent ostial right coronary artery stenosis with diffuse intimal irregularities of the right coronary artery. History of 80 to 90 percent stenosis of the proximal left anterior descending artery and 70 percent stenosis of the mid left circumflex and 70 percent stenosis of the distal left circumflex. History of systemic inflammatory response syndrome, history of lactic acidosis, history of transaminitis, history of hypomagnesemia, history of acute systolic congestive heart failure. History of hypertriglyceridemia, hyperlipidemia, history of hypovitaminosis D, history of type 2 diabetes mellitus, history of [id number] diabetes mellitus, history of bilateral pleural effusions, history of atelectasis and pulmonary edema. History of bilateral middle lobe, lingular lobe and bibasilar scarring. 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 History of left anterior hemiblock, history of infero and anterolateral coronary ischemic changes, history of pulmonary hypertension with right ventricular systolic pressure of 51 mmHg, history of severely impaired left ventricular systolic function with global left ventricular hypokinesis, history of dilated left atrium, history of moderately thickened mitral valve, history of [id number]-[id number] mitral regurgitation, history of moderate pulmonary regurgitation, history of incomplete left bundle-branch block, history of breast carcinoma status post chemotherapy and radiation therapy, history of dyslipidemia, history of type 2 diabetes mellitus, history of right heel fracture, history of cholecystectomy, history of anxiety, history of right breast carcinoma with lumpectomy. The patient's past medical history is also significant for congestive heart failure, history of cardiomegaly, history of triple-vessel coronary artery disease. History of bibasilar atelectasis. History of moderate pulmonic mitral regurgitation, history of questionable poor compliance, history of left axis deviation. The patient's past medical history is also significant for history of cataract surgery. PHYSICAL EXAMINATION: VITAL SIGNS: The patient is seen in the cardiac production laborer. T-max 97.6, pulse 81 and blood pressure 171/84. GENERAL: The patient is seen lying in the stretcher. Head examination normocephalic and atraumatic. HEENT examination shows pink conjunctivae. Anicteric sclerae. No oropharyngeal lesion. NECK: No neck rigidity. CHEST: Kyphosis. LUNGS: Show no audible crackle, rales or wheezing. CARDIOVASCULAR: S1 and S2, regular rhythm. Positive systolic murmur, left sternal border, right second intercostal space, left second intercostal space. ABDOMEN: Soft. Positive bowel sounds. No palpable hepatosplenomegaly noted. GENITALIA: Female. RECTAL: Deferred. EXTREMITIES: Extremity shows no pitting edema, no calf tenderness, no Homans sign. Positive varicose veins of the lower extremity noted. MUSCULOSKELETAL: Shows a body mass index of 28.3. NEUROLOGICAL: The patient is alert, awake and oriented. The patient is presently lying in the stretcher. Gait examination is not tested. VASCULAR: Palpable pulses. LABORATORY DATA: On 06/09/2018, WBC 7.0, hemoglobin and hematocrit are 11.9 and 35.7 and platelets 161. PT/PTT 12.1 and 27.7. Sodium 141, potassium 4.3, chloride 105, CO2 of 26, anion gap of 14, BUN 23, creatinine 0.7, GFR is greater than 60, glucose 259, calcium 9.6. Triglycerides 194, cholesterol 128, LDL 275 and HDL 36. Blood type is O positive. EKG done today shows sinus rhythm, left anterior hemiblock, incomplete left bundle-branch block. IMPRESSION: 1. Multivessel coronary artery disease and history of dilated ischemic cardiomyopathy. 2. Abnormal myocardial perfusion study showing reversible distal anteroseptal and reversible apical inferior and inferolateral defect suspicious of coronary ischemia. 3. Left ventricular ejection fraction of 49 percent. 4. Inferolateral hypokinesis. 5. Status post successful angioplasty and stent placement. 6. Hypertension. 7. History of systolic congestive heart failure, history of peripheral vascular disease, history of hyperlipidemia, history of type 2 diabetes mellitus. PLAN: At this time, the patient is to be admitted to [facility]. The patient will be admitted to telemetry postoperatively. The patient will be put on sliding scale insulin coverage. The patient will be resumed on her oral antihypertensive medication. The patient will be resumed on beta-blockers, Plavix, statins and aspirin. The patient will be resumed on Zestril 10 mg daily. The patient will be started on GI and DVT prophylaxis. Cardiology consultation will be ordered. The patient will be ordered repeat labs for the morning. The patient has been put on oxygen 2 liters nasal cannula, incentive spirometry. Repeat EKG ordered. Diabetic diet ordered. Fingerstick blood sugar has been ordered. Bed rest has been ordered. SCDs and TANGELA stockings have been ordered. The patient will be admitted at this time to telemetry post cardiac catheterization. The patient has been ordered hemoglobin A1c. The patient will be placed on bed rest. The patient's further management will be dependent upon the patient's clinical condition, hemodynamic status and as per the patient response to therapeutic intervention, as per the patient's diagnostic test results and as per recommendation by all the physicians involved in the care of the patient. I have met with the patient and the patient's at bedside. I have explained to the patient and the patient's about the details of her medical condition, diagnoses, need for further treatment evaluation at length and all questions concerned answered, which they acknowledged and understood. The patient is also put on Humalog sliding scale coverage. The patient has been ordered Colace 100 mg three times a day, aspirin 81 daily, Lipitor 40 daily, MiraLax 17 twice a day, Plavix 75 mg daily, Toprol XL 25 mg daily, Zestril and Zofran. Consistent carbohydrate diet. Repeat EKG has been ordered. Repeat CBC for the morning. Repeat CMP for the morning. Repeat LFTs and magnesium for the morning has been ordered. The patient will be on post cardiac cath and angioplasty protocol with bed rest at present. With neurovascular evaluation. Dictated and electronically signed, not read. Steven Christian MD
--- NOTE | 2018-06-09 18:12 | CARDCATH ---
PROCEDURE DATE: 06/09/2018 HISTORY: The patient is an 82-year-old woman with multiple cardiac risk factors including hypertension, diabetes and hypercholesterolemia, status post myocardial infarction in the past as well as multivessel PTCA in the past, who presents with an abnormal stress test and exertional shortness of breath. Because of this, cardiac catheterization was recommended. PROCEDURE: Left heart catheterization with coronary aortography, left ventriculogram followed by PTCA and stent of an RCA and PTCA and stent of an LAD. The right femoral artery was cannulated with a 6-[place] sheath. There were no complications. I performed moderate sedation, which included the presence of an independent trained observer that assisted in monitoring the patient's level of consciousness and physiologic status. After administration of Versed and fentanyl, my intra service time was 45 minutes. The findings on catheterization revealed a left ventricle that revealed minimal LV hypokinesis with an estimated ejection fraction of 50%. Her coronary anatomy revealed a right dominant circulation. The RCA at the previously placed ostial RCA stent revealed 99% stenoses. The left main artery was unremarkable. The LAD stents were patent; however, in the midportion, there was 80% stenoses noted, which was preceded by a 60% stenoses. The diagonal vessels were free of significant disease. The circumflex artery and obtuse marginal branches revealed intimal irregularities without critical lesions. The patient was started on intravenous Angiomax under fluoroscopic guide, the guiding catheter was placed in the ostium of the RCA. An 0.014 ATW wire was used to cross the subtotal occluded ostial RCA. A 3.0 balloon was utilized to predilate the lesion. This was followed by implantation of 4.0 x 12 mm drug-eluting stent at 12 atmospheres of pressure. Postdilatation was performed in the proximal portion of the stent at 14 atmospheres of pressure. Repeat coronary arteriography revealed an excellent result with no residual stenosis and JOHNATHON III flow. The guiding catheter was exchanged for left guiding catheter that was placed in the ostium of the left main artery. An 0.014 ATW wire was used to cross the two critical lesions in the mid LAD. A 3.5 x 18 mm drug-eluting stent was placed and deployed at 12 atmospheres of pressure. Repeat coronary arteriography revealed an excellent result with no residual stenosis and JOHNATHON III flow. The patient tolerated the procedure well. Angio-Seal was used to close the femoral artery site. In summary, the procedure was successful for PTCA and stent of a subtotal occluded ostial RCA which represented in-stent re-stenosis. PTCA and stent of a de alana lesions in the mid LAD with drug-eluting stents. LV function revealed low normal EF with an EF of 50%. Multivessel CAD. The PRU was measured with the patient was not therapeutic. An additional Plavix was given. I will review the patient's need for compliance with her medications as well as considering increasing her Plavix dose. Adding Effient posed too much side effects with the patient in the past. Leo Yarbrough MD
--- NOTE | 2018-06-09 19:38 | CARD ---
APPROVED REPORT Date of service: 06/09/2018 EKG Measurement Heart [id number] <Conclusion> Normal sinus rhythm Left axis deviation Incomplete LBBB Nonspecific ST and T wave abnormality Abnormal ECG
--- NOTE | 2018-06-09 20:40 | CARD ---
APPROVED REPORT Date of service: 06/09/2018 EKG Measurement Heart [id number] <Conclusion> Normal sinus rhythm Left axis deviation Incomplete left bundle branch block Minimal voltage criteria for LVH, may be normal variant Nonspecific T wave abnormality Abnormal ECG
[2018-06-10] MEDS ORDERED: Pantoprazole 40 mg EC Tab PO SCH (06:00)
[2018-06-10 06:16] VITALS: O2SAT 97
[2018-06-10 07:33] LABS: ALB/GLOB RATIO 1.4 (1.1-1.8); ALBUMIN 3.6 g/dL (3.0-4.8); ALT/SGPT 42 U/L (7-56); AST/SGOT 68 U/L (14-36); BILIRUBIN,DIRECT 0.2 mg/dL (0.0-0.4); BLOOD UREA NITROGEN 20 mg/dL (7-21); CALCIUM 8.8 mg/dL (8.4-10.5); GFR NON-AFRICAN AMERICAN 60
[2018-06-10] MEDS ORDERED: Magnesium Sulfate 2 gm/50 ml 2 GM/50 ML BAG IVPB ONE ×2 (08:11→09:30)
[2018-06-10 08:16] LABS: HEMOGLOBIN 10.1 g/dL (12.0-16.0); RBC 3.32 10^6/uL (3.5-6.1); WHITE BLOOD COUNT 6.7 10^3/uL (4.5-11.0)
[2018-06-10 08:17] LABS: BASO # 0.02 K/mm3 (0.0-2.0); BASO % 0.3 % (0.0-3.0); EOS # 0.1 (0.0-0.7); EOS % 1.8 % (1.5-5.0); GRAN # 4.58 (1.4-6.5); LYMPH # 1.4 (1.2-3.4); MEAN CELL VOLUME 93.1 fl (80.0-105.0); MEAN CORPUSCULAR HEMOGLOBIN 30.4 pg (25.0-35.0); MEAN CORPUSCULAR HGB CONC 32.7 g/dl (31.0-37.0); MEAN PLATELET VOLUME 10.8 fl (7.0-11.0); MONO # 0.6 (0.1-0.6); MONO % 8.9 % (1.0-6.0); RED CELL DISTRIBUTION WIDTH 14.8 % (11.5-14.5)
[2018-06-10] MEDS: Metoprolol Succinate 25 mg XL Tab PO SCH (08:40)
[2018-06-10] MEDS: Insulin Lispro (humaLOG) MEDIUM Coverage SC SCH ×2 (08:41→12:17)
[2018-06-10] MEDS: POLYETHYLENE GLYCOL 3350 17 GM/Dose PACKET PO SCH (10:55)
[2018-06-10 10:56] VITALS: PULSE 95
[2018-06-10 12:12] VITALS: BP 132/70; RESP 16; TEMP 97.6
--- NOTE | 2018-06-10 12:54 | PN ---
DATE: 06/10/2018 REASON FOR DICTATION: Covering for Dr. Leo Yarbrough. REASON FOR THE CONSULTATION: The patient denies any chest pain, shortness of breath, or any palpitations. Right groin appears okay. PHYSICAL EXAMINATION: VITAL SIGNS: Temperature afebrile, heart rate 78, blood pressure 133/56. HEENT: PERRLA. Extraocular muscles intact. NECK: Supple. No carotid bruits or thyromegaly. CHEST: Clear to auscultation. HEART: S1 and S2 regular. ABDOMEN: Soft. EXTREMITIES: Clubbing and cyanosis negative. LABORATORY DATA: Blood workup as follows; WBC 6.7, hemoglobin 10.1, hematocrit 30.9, platelet count 131. Chemistry shows sodium 130, potassium 4.3, chloride 107, carbon dioxide 24, anion gap of 12, BUN 20, creatinine of 0.9. and magnesium 1.6. IMPRESSION: This is an 82-year-old female with past medical history of diabetes, hypertension, hyperlipidemia, status post myocardial infarction in the past, history of multivessel percutaneous transluminal coronary angioplasty in the past, admitted with dyspnea on exertion and abnormal stress test. The patient underwent percutaneous transluminal coronary angioplasty of left anterior descending with a drug eluting stent. RECOMMENDATION: Supplement magnesium, continue aspirin, continue atorvastatin, continue Plavix, continue metoprolol succinate 25 mg daily and continue lisinopril 10 mg daily. After supplementations of magnesium, the patient will be discharged. Follow up with Dr. Yabrrough. Thank you Dr. Christian for providing us the opportunity in taking care of the patient, Celso Mckenzie. Margoth Krishna MD
--- NOTE | 2018-06-10 17:26 | CARD ---
APPROVED REPORT Date of service: 06/10/2018 EKG Measurement Heart [id number] <Conclusion> Sinus rhythm with occasional premature ventricular complexes Left axis deviation T wave abnormality, consider lateral ischemia Abnormal ECG
--- NOTE | 2018-06-11 11:29 | DS ---
FINAL PROGRESS NOTE AND DISCHARGE SUMMARY Patient was in room 273, bed 3. HISTORY OF PRESENT ILLNESS: Overnight, nurse's notes were reviewed. The patient's postcardiac cath and angioplasty status was stable without any adverse events noted. The patient's right groin dressing was intact, no bleeding noted. The patient denies any chest pain or shortness of breath. Denies nausea, vomiting, diarrhea, or constipation. PHYSICAL EXAMINATION: VITAL SIGNS: T-max 97.6; telemetry shows normal sinus rhythm, heart rate 78, 85, 95; blood pressure in the last 24 hours ranging between 130s, 140s, 160s systolic down to 130s systolic in the morning; diastolic 56, 76; respirations 16; O2 sat is 97-98%. HEENT AND NECK: Head examination normocephalic, atraumatic. HEENT examination shows pinkish pale conjunctivae. Anicteric sclerae. No oropharyngeal lesion. No neck rigidity. CHEST: Kyphosis. LUNGS: Shows no audible crackles, rales or wheezing. CARDIOVASCULAR: S1 and S2, regular rhythm. Positive systolic murmur, left sternal border, right second intercostal space, left second intercostal space. ABDOMEN: Soft, positive bowel sound. Right groin dressing is intact without any hematoma, bleeding, or ecchymosis noted. VASCULAR: Palpable pulses. MUSCULOSKELETAL: Shows a body mass index of 27.6. NEUROLOGIC: Cranial nerves II-XII are intact. DIAGNOSTICS: On 06/10/2018, WBC 6.7, hemoglobin and hematocrit are 10.1 and 31, platelets 131,000. Sodium 139, potassium 4.1, chloride 107, CO2 24, anion gap 12, BUN 20, creatinine 0.9, GFR greater than 60, glucose 275, 214, 218, calcium 8.8, phosphorus 3.6, magnesium 1.6, AST 68, blood type O+. IMPRESSION: 1. Multivessel coronary artery disease. 2. Status post cardiac catheterization and double vessel angioplasty. 3. Status post left ventriculogram. 4. Successful angioplasty and stent placement of the right coronary artery and angioplasty and stent placement of the left anterior descending artery. 5. Minimal left ventricular hypokinesis with estimated ejection fraction of 50%. 6. In-stent 99% stenosis of the ostial right coronary artery. 7. 60 and 80% stenosis of the mid left anterior descending artery. 8. Status post successful angioplasty and stent placement of the subtotal occluded ostial right coronary artery which represented in-stent restenosis. 9. Percutaneous transluminal coronary angioplasty and stent placement of the de alana lesions of the mid-anterior descending artery with drug-eluting stent. 10. Low normal left ventricular ejection fraction of 50%. 11. Multivessel coronary artery disease. 12. History of peripheral vascular disease. 13. Noninsulin requiring type 2 diabetes mellitus. 14. Left axis deviation. 15. Incomplete left bundle-branch block. 16. Hyperlipidemia. 17. History of poor compliance. 18. Bilateral lower extremity peripheral vascular disease with right popliteal trifurcation and tibial disease and left tibial disease with ankle-brachial index of 0.73 on the right and ankle-brachial index of 0.75 on the left. 19. Hypomagnesemia. 20. Normocytic anemia. 21. Hyperglycemia. 22. Uncontrolled noninsulin requiring diabetes mellitus with hemoglobin A1c of 9.0. 23. Hypertriglyceridemia. PLAN: At this time, the patient may be discharged after morning labs are normal and after cleared by Dr. Yarbrough from Cardiology. DISCHARGE MEDICATIONS: 1. Ecotrin 81 mg daily. 2. Lipitor 40 mg daily. 3. Plavix 75 mg daily. 4. Lasix 40 mg p.o. daily. 5. Amaryl 2 or 4 mg twice a day. 6. Zestril 10 mg daily. 7. Metformin 1000 mg twice a day. 8. Toprol-XL 25 mg daily. DISCHARGE FOLLOWUP: With Dr. Christian within one week. Discharge medications as per updated orders. Dictated and electronically signed, not read. Steven Christian MD
== END 2018-06-10 14:28 | disposition home or self-care (01) ==
LOC: CATH 06:22 → 2RSO 09:04 → CATH 06-10 14:28
PROVIDERS: ATTEND Internal Medicine Cardiovascular Disease
DX: I25.10 Atherosclerotic heart disease of native coronary artery without angina pectoris (principal); I25.5 Ischemic cardiomyopathy; I50.22 Chronic systolic (congestive) heart failure; E78.5 Hyperlipidemia, unspecified; E11.51 Type 2 diabetes mellitus with diabetic peripheral angiopathy without gangrene; E11.65 Type 2 diabetes mellitus with hyperglycemia; E55.9 Vitamin D deficiency, unspecified; E78.00 Pure hypercholesterolemia, unspecified; E78.1 Pure hyperglyceridemia; E83.42 Hypomagnesemia; D64.9 Anemia, unspecified; F41.9 Anxiety disorder, unspecified; I11.0 Hypertensive heart disease with heart failure; I25.2 Old myocardial infarction; I27.20 Pulmonary hypertension, unspecified; I44.7 Left bundle-branch block, unspecified; Z79.82 Long term (current) use of aspirin; Z79.899 Other long term (current) drug therapy; Z88.0 Allergy status to penicillin; Z92.21 Personal history of antineoplastic chemotherapy; Z92.3 Personal history of irradiation; Z85.3 Personal history of malignant neoplasm of breast; Z95.5 Presence of coronary angioplasty implant and graft; Z83.3 Family history of diabetes mellitus; Z82.49 Family history of ischemic heart disease and other diseases of the circulatory system
CPT/HCPCS: 36415 ×2; 80048; 80053; 80061; 82248; 82948 ×2; 83036; 83735; 84100; 85025 ×2; 85576; 85610; 85730; 86850; 86900; 93005 ×2; 93458; 99152; 99153; C1725; C1760; C1769 ×2; C1874 ×2; C1887; C2629; C9600; C9601; J0360; J0583; J1327; J1644; J2250; J2405; J3010; J7030; Q9966; Q9967